=== PATIENT | female | born 1940 | race Caucasian/White ===

== ENCOUNTER → 2016-05-27 | Outpatient (CLI) | payer OTHER ==
[~2016-05-27] MED LIST: ASPI325T39 PO; BENZ100C84 PO; FLUT1INH INH; LOSA50TA54 PO; SIMV10TA2 PO
[2016-05-27 17:29] LABS: BASO % 0.4 %; BASO ABS # 0.03 K/uL (0-0.2); COMPLETE YES; EOS % 1.4 %; HEMATOCRIT 43.5 % (37-47); IG% 0.1 %; LYMPH % 27.6 %; LYMPH ABS # 1.93 K/uL (1.2-3.4); MEAN CELL VOLUME 92.8 fL (80-100); MEAN CORPUSCULAR HEMOGLOBIN 30.5 pg (25-34); MEAN CORPUSCULAR HGB CONC 32.9 g/dl (32-36); MEAN PLATELET VOLUME 10.1 fL (7.4-10.4); MONO % 10.9 %; NEUT % 59.6 %; PLATELET COUNT 267 K/uL (130-400); RED BLOOD COUNT 4.69 M/uL (4.2-5.4); WHITE BLOOD COUNT 6.99 K/uL (4.8-10.8)
[2016-05-27 17:35] LABS: ALT/SGPT 22 U/L (12-78); AST/SGOT 14 U/L (15-37); BLOOD UREA NITROGEN 28 mg/dl (7-18); BUN/CREATININE RATIO 31.2 (10-20); CALCIUM 9.2 mg/dl (8.5-10.1); CARBON DIOXIDE 31 mmol/L (21-32); CHLORIDE 105 mmol/L (98-107); CREATININE 0.89 mg/dl (0.60-1.20); GLUCOSE 101 mg/dl (70-99); POTASSIUM 3.6 mmol/L (3.5-5.1); SODIUM 144 mmol/L (136-145)
[2016-05-27 17:46] LABS: ALB/GLOB RATIO 1.3 (0.9-2); ALKALINE PHOSPHATASE 64 U/L (45-117); THYROID STIMULATING HORMONE 0.518 uIu/ml (0.300-4.500)
== END | disposition home or self-care (01) ==
LOC: C.LABBFT 13:01
PROVIDERS: ATTEND Internal Medicine
DX: R42 Dizziness and giddiness (principal); I65.29 Occlusion and stenosis of unspecified carotid artery; H61.20 Impacted cerumen, unspecified ear

== ENCOUNTER → 2016-06-06 | Outpatient (CLI) | payer OTHER ==
[2016-06-06 12:44] LABS: BLOOD UREA NITROGEN 20 mg/dl (7-18); BUN/CREATININE RATIO 21.8 (10-20); CALCIUM 9.2 mg/dl (8.5-10.1); CARBON DIOXIDE 29 mmol/L (21-32); CHLORIDE 105 mmol/L (98-107); CHOLESTEROL 241 mg/dl (0-200); CREATININE 0.91 mg/dl (0.60-1.20); GLUCOSE 103 mg/dl (70-99); POTASSIUM 3.9 mmol/L (3.5-5.1); SODIUM 143 mmol/L (136-145)
[2016-06-06 12:47] LABS: CHOLESTEROL/HDL RATIO 2.7; HDL CHOLESTEROL 90 mg/dl; LDL CHOLESTEROL CALCULATED 128 mg/dl; TRIGLYCERIDES 114 mg/dl (0-150); VERY LOW DENSITY LIPOPROT CALC 23 mg/dl
== END | disposition home or self-care (01) ==
LOC: C.LABBFT 09:00
PROVIDERS: ATTEND Family Medicine
DX: I10 Essential (primary) hypertension (principal); E78.5 Hyperlipidemia, unspecified

== ENCOUNTER → 2016-06-14 | Outpatient (CLI) | payer OTHER ==
[~2016-06-14] MED LIST changes: +GADAVIST IV PRN
--- NOTE | 2016-06-14 12:47 | DIAGNOSTIC IMAGING REPORT ---
MR ANGIOGRAPHY OF THE [place] OF [place] NO CONTRAST CLINICAL HISTORY: Basilar artery stenosis. Dizziness. Hypertension. COMPARISON STUDY: 2008 A 3-D [id number] MR angiographic sequence of the [place] was performed. Both the source and projection images were reviewed. There is no evidence of major intracranial branch occlusion. There is no evidence of intracranial stenosis. This study fails to confirm the suspected basilar artery stenosis. There is a nonspecific 4 mm focus of increased signal in the region of the right anterior sylvian fissure. This is of questionable clinical significance. There are no corresponding abnormalities on the MRI the brain performed the same day. IMPRESSION: 1. Nonspecific 4 cm focus of increased signal in the region of the right anterior sylvian fissure. This is ill-defined and not typical for an aneurysm. There are no corresponding abnormalities on the MRI the brain performed the same day. This may be artifactual. 2. No evidence of major intracranial branch occlusion 3. No evidence of basilar artery stenosis Electronically signed by: Antwon Cross M.D. 06/14/2016 12:45 PM Dictated Date/Time: 06/14/2016 12:12 PM
--- NOTE | 2016-06-14 12:51 | DIAGNOSTIC IMAGING REPORT ---
MRI OF THE BRAIN COMBO CLINICAL HISTORY: Dizziness. COMPARISON STUDY: MRI of the brain dated 12/01/2008. TECHNIQUE: MRI of the brain was performed utilizing various T1 and T2-weighted sequences in the axial, sagittal, and coronal planes. Contrast-enhanced sequences were acquired following the administration of 6 cc of Gadavist. FINDINGS: Brain parenchyma: There is mild patchy subcortical and periventricular microangiopathic disease. There is no hemorrhage or mass effect. There is no restricted diffusion to suggest acute ischemia. No enhancing mass lesion is identified on the postcontrast images. Galaviz-white matter differentiation is preserved. No extra-axial fluid collection is seen. The cerebellar tonsils are normal in configuration. Ventricles, sulci, and cisterns: Normal in configuration. Pituitary and sella: Unremarkable. Intracranial vasculature: Normal flow voids are maintained at the skull base. Orbits: The bony orbits are grossly intact. Orbital contents are normal in appearance noting bilateral ocular lens implants. Sinuses and mastoids: Clear. Calvarium: Unremarkable. Cervical cord: Partially visualized cervical spinal cord is normal in morphology and signal intensity. IMPRESSION: No acute intracranial abnormality. Electronically signed by: Clifford Haines M.D. 06/14/2016 12:50 PM Dictated Date/Time: 06/14/2016 12:47 PM
--- NOTE | 2016-06-14 14:31 | DIAGNOSTIC IMAGING REPORT ---
BILATERAL CAROTID DOPPLER STUDY HISTORY: CAROTID STENOSIS COMPARISON: None. TECHNIQUE: Real-time, grayscale, and color Doppler sonography of the carotid arteries was performed. Imaging reviewed in the transverse and longitudinal planes. All measurements were calculated based on NASCET criteria. FINDINGS: Antegrade flow is seen in the bilateral vertebral arteries. The brachial pressures are hemodynamically similar. Moderate plaque formation bilaterally The peak systolic velocity within the right ICA is 121. The right systolic ratio is 1.09. The peak systolic velocity within the left ICA is 96. The left systolic ratio is 0.63. IMPRESSION: 30% narrowing right internal carotid artery. No critical stenosis. Moderate atherosclerotic change Electronically signed by: Samm Alicia M.D. 06/14/2016 2:30 PM Dictated Date/Time: 06/14/2016 2:29 PM
== END | disposition home or self-care (01) ==
LOC: C.MRI 11:29
PROVIDERS: ATTEND Internal Medicine
DX: I65.1 Occlusion and stenosis of basilar artery (principal); I65.29 Occlusion and stenosis of unspecified carotid artery

== ENCOUNTER → 2016-10-03 | Outpatient (CLI) | payer OTHER ==
[~2016-10-03] MED LIST changes: -GADAVIST IV PRN
--- NOTE | 2016-10-03 08:09 | DIAGNOSTIC IMAGING REPORT ---
CHEST 2 VIEWS ROUTINE CLINICAL HISTORY: Cough. Shortness of breath. COMPARISON STUDY: Chest radiograph January 07, 2014. FINDINGS: Lung volumes are increased. There is no pneumothorax or pleural effusion. Cardiomediastinal silhouette is stable. There is no evidence of pulmonary edema. There is no consolidation to suggest pneumonia. Biapical opacities are unchanged since earlier exams and favor scarring. IMPRESSION: 1. No acute cardiopulmonary findings. No change in appearance of the chest. 2. Mild lung hyperexpansion. 3. Stable biapical opacities which favor scarring. Electronically signed by: Lonnie Ha M.D. 10/03/2016 8:08 AM Dictated Date/Time: 10/03/2016 8:04 AM
== END | disposition home or self-care (01) ==
LOC: C.RAD 07:40
PROVIDERS: ATTEND Internal Medicine
DX: R05 Cough (principal); R91.8 Other nonspecific abnormal finding of lung field

== ENCOUNTER 2016-10-11 15:03 | Emergency (ER) | payer OTHER ==
[~2016-10-11] VITALS: Ht 172.7 cm; Wt 64.0 kg
[~2016-10-11 15:03] MED LIST changes: -BENZ100C84 PO; -FLUT1INH INH; -LOSA50TA54 PO; -SIMV10TA2 PO
[2016-10-11 15:07] VITALS: TEMP 37.2; Ht 172.7 cm; Wt 64.0 kg
--- NOTE | 2016-10-11 15:42 | EMERGENCY ROOM VISIT NOTE ---
History Report prepared by Yash: Bradley Kraus Under the Supervision of: Dr. Levar Washington D.O. First contact with patient: 15:30 Chief Complaint: CARDIAC ASSESSMENT Stated Complaint: CHEST PAIN, ARM TINGLING, REFERRED BY DOCTOR History of Present Illness The patient is a 76 year old female who presents to the Emergency Room with complaints of resolved left sided chest pain that occurred last night, and was resolved by this morning. She has no chest discomfort at this time, except with deep inhalation. The patient states that her chest pain lasted for roughly 1 hour. She claims that she was watering her hdez by bucket when her pain began. She was experiencing some associated discomfort in her neck last night, which she notes that she is still having now. The patient also complains of some tingling in her fingers and vision irregularities throughout the day today , as well as some dyspnea upon exertion. She has no history of myocardial infarction or blood clots. She takes Aspirin 325 mg daily as a blood thinner. Source of History: patient Onset: One night GAS CUTTER Position: chest (left) Timing: resolved Modifying Factors (Worsening): other (Deep inhalation ) Associated Symptoms: + neck pain, + SOB, + numbness (Finger tips ) Review of Systems See HPI for pertinent positives & negatives. A total of 10 systems reviewed and were otherwise negative. Past Medical & Surgical Medical Problems: (1) No pertinent past medical history (2) Shingles Family History Patient reports no known family medical history. Social History Smoking Status: Never Smoker Alcohol Use: none Drug Use: none Occupation Status: retired Current/Historical Medications Scheduled Aspirin (Aspirin Ec), 325 MG PO DAILY Fluticasone Furoate-Vilanterol (Breo Ellipta), 1 PUFF INH BID Losartan Potassium (Cozaar), 50 MG PO DAILY Simvastatin (Zocor), 10 MG PO QPM Scheduled PRN Benzonatate (Tessalon Perles), 1-2 CAP PO Q4 PRN for Cough Allergies Coded Allergies: No Known Allergies (Unverified , 10/11/16) Physical Exam Vital Signs Date Time Temp Pulse Resp B/P (MAP) Pulse Ox O2 Delivery O2 Flow Rate FiO2 10/11/16 19:09 82 18 167/88 96 10/11/16 16:45 93 16 156/73 96 Room Air 10/11/16 16:01 85 10/11/16 15:45 97 Room Air 10/11/16 15:15 97 Room Air 10/11/16 15:07 37.2 100 17 198/87 94 Room Air Physical Exam GENERAL: Patient is awake, alert, and in no acute distress. Patient is resting comfortably and showing no signs of anxiety EYES: The conjunctivae are clear. The pupils are round and reactive. EARS, NOSE, MOUTH AND THROAT: The nose is without any evidence of any deformity. Mucous membranes are moist tongue is midline NECK: The neck is nontender and supple. RESPIRATORY: Normal respiratory effort is noted there is no evidence of wheezing rhonchi or rales CARDIOVASCULAR: Regular rate and rhythm noted there no murmurs rubs or gallops normal S1 normal S2 GASTROINTESTINAL: The abdomen is soft. Bowel sounds are present in all quadrants. Abdomen is nontender MUSCULOSKELETAL/EXTREMITIES: There is no evidence of gross deformity full range of motion is noted in the hips and shoulders SKIN: There is no obvious evidence of any rash. There are no petechiae, pallor or cyanosis noted. NEUROLOGIC: Patient is awake alert and oriented x3. Medical Decision & Procedures ER Provider Diagnostic Interpretation: Radiology results as stated below per my review and radiologist interpretation: CHEST ONE VIEW PORTABLE CLINICAL HISTORY: Atypical chest pain COMPARISON STUDY: 10/03/2016 FINDINGS: There is pulmonary emphysema. The heart is at the upper limits of normal in size. There is no failure. There is no focal pulmonary consolidation. There are no pleural effusions. There is a prominent right cardiophrenic angle fat pad.[ IMPRESSION: No active disease in the chest. Electronically signed by: Antwon Cross M.D. 10/11/2016 3:57 PM Dictated Date/Time: 10/11/2016 3:56 PM Laboratory Results 10/11/16 15:40 Red Blood Count 4.68, Mean Corpuscular Volume 95.3, Mean Corpuscular Hemoglobin 30.1, Mean Corpuscular Hemoglobin Concent 31.6, Mean Platelet Volume 9.3, Neutrophils (%) (Auto) 70.3, Lymphocytes (%) (Auto) 18.1, Monocytes (%) (Auto) 9.8, Eosinophils (%) (Auto) 1.3, Basophils (%) (Auto) 0.4, Neutrophils # (Auto) 6.26, Lymphocytes # (Auto) 1.61, Monocytes # (Auto) 0.87, Eosinophils # (Auto) 0.12, Basophils # (Auto) 0.04 10/11/16 15:40 Test 10/11/16 15:40 10/11/16 15:48 10/11/16 18:09 White Blood Count 8.91 K/uL (4.8-10.8) Red Blood Count 4.68 M/uL (4.2-5.4) Hemoglobin 14.1 g/dL (12.0-16.0) Hematocrit 44.6 % (37-47) Mean Corpuscular Volume 95.3 fL (80-100) Mean Corpuscular Hemoglobin 30.1 pg (25-34) Mean Corpuscular Hemoglobin Concent 31.6 g/dl (32-36) Platelet Count 221 K/uL (130-400) Mean Platelet Volume 9.3 fL (7.4-10.4) Neutrophils (%) (Auto) 70.3 % Lymphocytes (%) (Auto) 18.1 % Monocytes (%) (Auto) 9.8 % Eosinophils (%) (Auto) 1.3 % Basophils (%) (Auto) 0.4 % Neutrophils # (Auto) 6.26 K/uL (1.4-6.5) Lymphocytes # (Auto) 1.61 K/uL (1.2-3.4) Monocytes # (Auto) 0.87 K/uL (0.11-0.59) Eosinophils # (Auto) 0.12 K/uL (0-0.5) Basophils # (Auto) 0.04 K/uL (0-0.2) RDW Standard Deviation 49.5 fL (36.4-46.3) RDW Coefficient of Variation 14.2 % (11.5-14.5) Immature Granulocyte % (Auto) 0.1 % Immature Granulocyte # (Auto) 0.01 K/uL (0.00-0.02) Prothrombin Time 10.2 SECONDS (9.0-12.0) Prothromb Time International Ratio 1.0 (0.9-1.1) Activated Partial Thromboplast Time 26.3 SECONDS (21.0-31.0) Partial Thromboplastin Ratio 1.0 Anion Gap 7.0 mmol/L (3-11) Est Creatinine Clear Calc Drug Dose 54.6 ml/min Estimated GFR () 74.5 Estimated GFR (Non- 64.3 BUN/Creatinine Ratio 32.4 (10-20) Calcium Level 8.9 mg/dl (8.5-10.1) Total Bilirubin 0.5 mg/dl (0.2-1) Direct Bilirubin < 0.1 mg/dl (0-0.2) Aspartate Amino Transf (AST/SGOT) 17 U/L (15-37) Alanine Aminotransferase (ALT/SGPT) 22 U/L (12-78) Alkaline Phosphatase 69 U/L (45-117) Total Protein 7.1 gm/dl (6.4-8.2) Albumin 3.7 gm/dl (3.4-5.0) Lipase 114 U/L (73-393) Bedside D-Dimer 288 ng/mlFEU (0-450) Troponin I < 0.015 ng/ml (0-0.045) Laboratory results per my review. ECG Indication: chest pain Rate (beats per minute): 98 Rhythm: normal sinus Findings: no acute ischemic change, no ectopy Comparison ECG Date: no prior available ED Course 1533: The patient was evaluated in room B5. A complete history and physical examination were performed. 1855 : Upon reevaluation, the patient is resting in bed. I discussed the results and treatment plan with her. She verbalized agreement of the treatment plan. The patient was discharged home. Medical Decision Blood pressure screening: Patient was found to have an elevated blood pressure and was referred to their primary doctor for recheck and further treatment. Medication Reconciliation: I attest that I have personally reviewed the patient' s current medications list. Differential diagnosis: Etiologies such as cardiac ischemia, aortic dissection, pulmonary embolism, pneumonia, pneumothorax, musculoskeletal, infections, pericarditis, myocarditis , esophageal rupture, gastrointestinal, as well as others were entertained. The patient is a 76-year-old female who presented to the emergency department for an episode of chest pain. The patient describes left-sided chest pain which is worsened with inspiration as well as movement of her arm. The pain is somewhat reproducible. The patient states that she was working in her garden recently and thinks she may have pulled a muscle. The patient called her primary care physician and was sent to the emergency department for an evaluation. The patient's EKG did not show any acute ischemic changes and her troponin was not elevated on multiple draws. I discussed the patient's laboratory and radiographic studies with her. I discussed the limitations of the emergency department workup for chest pain with her. She was encouraged to rest and avoid any strenuous activity. She was encouraged to follow-up with her primary care physician is week for reevaluation but return to the emergency department immediately if symptoms change worsen or the need arises. Impression Primary Impression: Left sided chest pain Scribe Attestation The scribe's documentation has been prepared under my direction and personally reviewed by me in its entirety. I confirm that the note above accurately reflects all work, treatment, procedures, and medical decision making performed by me. Departure Information Dispostion Home / Self-Care Referrals Tal Dodd M.D. (PCP) Forms IMPORTANT VISIT INFORMATION Patient Instructions My [facility] Additional Instructions Continue all medications as prescribed. Rest and avoid any strenuous activity. Return to the emergency department immediately if symptoms change worsen in the need arises.
[2016-10-11 15:45] VITALS: O2SAT 97
--- NOTE | 2016-10-11 15:58 | DIAGNOSTIC IMAGING REPORT ---
CHEST ONE VIEW PORTABLE CLINICAL HISTORY: Atypical chest pain COMPARISON STUDY: 10/03/2016 FINDINGS: There is pulmonary emphysema. The heart is at the upper limits of normal in size. There is no failure. There is no focal pulmonary consolidation. There are no pleural effusions. There is a prominent right cardiophrenic angle fat pad.[ IMPRESSION: No active disease in the chest. Electronically signed by: Antwon Cross M.D. 10/11/2016 3:57 PM Dictated Date/Time: 10/11/2016 3:56 PM
[2016-10-11 16:12] LABS: BASO % 0.4 %; BASO ABS # 0.04 K/uL (0-0.2); COMPLETE YES; EOS % 1.3 %; HEMATOCRIT 44.6 % (37-47); IG% 0.1 %; LYMPH % 18.1 %; LYMPH ABS # 1.61 K/uL (1.2-3.4); MEAN CELL VOLUME 95.3 fL (80-100); MEAN CORPUSCULAR HEMOGLOBIN 30.1 pg (25-34); MEAN CORPUSCULAR HGB CONC 31.6 g/dl (32-36); MEAN PLATELET VOLUME 9.3 fL (7.4-10.4); MONO % 9.8 %; NEUT % 70.3 %; PLATELET COUNT 221 K/uL (130-400); RED BLOOD COUNT 4.68 M/uL (4.2-5.4); WHITE BLOOD COUNT 8.91 K/uL (4.8-10.8)
[2016-10-11] MEDS ORDERED: BENZ100C84 PO (16:16)
[2016-10-11] MEDS ORDERED: FLUT1INH INH (16:16)
[2016-10-11] MEDS ORDERED: SIMV10TA2 PO (16:16)
[2016-10-11] MEDS ORDERED: LOSA50TA54 PO (16:16)
[2016-10-11 16:20] LABS: PROTHROMBIN TIME (PATIENT) 10.2 SECONDS (9.0-12.0)
[2016-10-11 16:57] LABS: ALT/SGPT 22 U/L (12-78); AST/SGOT 17 U/L (15-37); BLOOD UREA NITROGEN 28 mg/dl (7-18); BUN/CREATININE RATIO 32.4 (10-20); CALCIUM 8.9 mg/dl (8.5-10.1); CARBON DIOXIDE 28 mmol/L (21-32); CHLORIDE 110 mmol/L (98-107); CREATININE 0.87 mg/dl (0.60-1.20); GLUCOSE 134 mg/dl (70-99); POTASSIUM 3.6 mmol/L (3.5-5.1); SODIUM 145 mmol/L (136-145)
[2016-10-11 17:02] LABS: ALKALINE PHOSPHATASE 69 U/L (45-117)
[2016-10-11 19:09] VITALS: BP 167/88; PULSE 82; O2SAT 96
== END 2016-10-11 19:10 | disposition home or self-care (01) ==
LOC: C.EDB 15:05
DX: R07.9 Chest pain, unspecified (principal); Z79.82 Long term (current) use of aspirin; Z79.899 Other long term (current) drug therapy

== ENCOUNTER 2016-10-22 10:56 | Emergency (ER) | payer OTHER ==
[~2016-10-22] VITALS: Ht 172.7 cm; Wt 63.8 kg
[~2016-10-22 10:56] MED LIST changes: +BENZ100C84 PO; +FLUT1INH INH; +LOSA50TA54 PO; +SIMV10TA2 PO
[2016-10-22 10:59] VITALS: TEMP 36.3; Ht 172.7 cm; Wt 63.8 kg
[2016-10-22] MEDS ORDERED: XYLOCAINE 1%/SOD BICARB 20 ML VIAL INFIL ONE (11:45)
[2016-10-22] MEDS ORDERED: DIPHTHERIA/TETANUS/PERTUSSIS 0.5 ML SYR/VIAL IM. ONE (11:45)
--- NOTE | 2016-10-22 12:10 | EMERGENCY ROOM VISIT NOTE ---
History Report prepared by Yash: Steph Aponte Under the Supervision of: Dr. Thierry Jauregui M.D. First contact with patient: 11:33 Chief Complaint: LACERATION/CUT (NON-SUTURE) Stated Complaint: LACERATION OF LIP Nursing Triage Summary: pt doesn't know how she fell but hit her face on the floor and has a lac above left lip History of Present Illness The patient is a 76 year old female who presents to the Emergency Room with complaints of an episode of a fall occurring just prior to arrival. The patient reports that she turned suddenly and her legs just gave out. She states that she hit her face off the concrete, but her glasses didn't even fall off. She reports that she was able to walk on her own after the fall. The patient denies loss of consciousness, chest pain, neck pain, headache, and urinary symptoms. The patient notes that she takes Aspirin and that she is unsure of her last tetanus shot. Source of History: patient Onset: prior to arrival Position: other (global) Quality: other (global) Timing: other (episode) Associated Symptoms: No LOC, No headache, No neck pain, No chest pain, No urinary symptoms Review of Systems See HPI for pertinent positives & negatives. A total of 6 systems reviewed and were otherwise negative. Past Medical & Surgical Medical Problems: (1) No pertinent past medical history (2) Shingles Family History Patient reports no known family medical history. Social History Smoking Status: Never Smoker Alcohol Use: none Drug Use: none Housing Status: lives alone Occupation Status: retired Current/Historical Medications Scheduled Aspirin (Aspirin Ec), 325 MG PO DAILY Fluticasone Furoate-Vilanterol (Breo Ellipta), 1 PUFF INH BID Losartan Potassium (Cozaar), 50 MG PO DAILY Simvastatin (Zocor), 10 MG PO QPM Scheduled PRN Benzonatate (Tessalon Perles), 1-2 CAP PO Q4 PRN for Cough Allergies Coded Allergies: No Known Allergies (Unverified , 10/22/16) Physical Exam Vital Signs Date Time Temp Pulse Resp B/P (MAP) Pulse Ox O2 Delivery O2 Flow Rate FiO2 10/22/16 12:17 68 20 174/86 97 Room Air 10/22/16 10:59 36.3 77 16 186/79 95 Room Air Physical Exam GENERAL: Patient is well appearing and in no acute distress. HEENT: No acute trauma, normocephalic atraumatic, mucous membranes moist, no nasal congestion, no scleral icterus. NECK: No stridor, no adenopathy, no meningismus, trachea is midline. LUNGS: No dyspnea. Clear to auscultation and equal bilaterally. No wheeze, no rhonchi. HEART: Regular rate and rhythm. No murmurs, rubs, gallops appreciated. EXTREMITIES: Normal motion all extremities, no cyanosis, no edema. NEUROLOGIC: Alert and oriented, no acute motor or sensory deficits, no focal weakness, cranial nerves grossly intact. SKIN: No rash, no jaundice, no diaphoresis. 1 cm horizontal lip laceration just above left upper mandible border. Medical Decision & Procedures Medications Administered Medications (Trade) Dose Ordered Sig/Ct Route Start Time Stop Time Status Last Admin Dose Admin Diphtheria/ Pertussis/Tetanus Vacc (Adacel Inj) 0.5 ml ONCE ONCE IM. 10/22/16 11:45 10/22/16 11:46 DC 10/22/16 11:46 0.5 ML ED Course 1135: The patient was evaluated in room C5. A complete history and physical exam was performed. 1145: Ordered Adacel Inj 0.5 ml IM, Lidocaine HCl 20 ml INFIL. 1212: Reevaluated the patient. Discussed results and discharge instructions: She verbalized understanding and agreement. The patient is ready for discharge. Medical Decision Medication Reconciliation: I attest that I have personally reviewed the patient 's current medication list. Blood pressure screening: Patient was found to have an elevated blood pressure and was referred to their primary doctor for recheck and further treatment. 76 yr old female with left upper lip laceration after what she makes clear was mechanical trip and fall hitting lip. She declines testing and is not on any blood thinners. She denies syncopal event nor symptoms consistent with cardiac/ neurological cause of fall. She by exam looks well and in no distress. Unknown last tetanus thus adacel. Sutured by LUANNE and stable. Impression Primary Impression: Lip laceration Additional Impressions: [id number] (DTP) vaccination Hypertension Scribe Attestation The scribe's documentation has been prepared under my direction and personally reviewed by me in its entirety. I confirm that the note above accurately reflects all work, treatment, procedures, and medical decision making performed by me. Departure Information Dispostion Home / Self-Care Referrals Tal Dodd M.D. (PCP) Forms HOME CARE DOCUMENTATION FORM, IMPORTANT VISIT INFORMATION, WORK / SCHOOL INSTRUCTIONS Patient Instructions ED Laceration Facial Sutr Tape, My [facility] Additional Instructions You had 3 stitches placed in your lip. Please return or follow up with your Primary Care Provider in 5 to 7 days for removal of stitches. Return if signs of infection develop. Your blood pressure was elevated during this visit. This is quite common in many people who are being evaluated in the Emergency Department for many reasons. However, it is important that you have your Primary Care Provider recheck your blood pressure and discuss whether treatment will be needed. 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 If you develop severe headaches, chest pain, weakness in arms or legs, or other concerning symptoms call 911. Problem Qualifiers Primary Impression: Lip laceration Encounter type: initial encounter Qualified Codes: S01.511A - Laceration without foreign body of lip, initial encounter
--- NOTE | 2016-10-22 12:13 | EMERGENCY ROOM VISIT NOTE ---
ED Visit Note I was requested by Dr. Jauregui for a facial laceration repair on this patient. PROCEDURE:Wound Repair: Complexity: Basic. Verbal consent was obtained after the risks and benefits were explained, including but not limited to bleeding, scarring, infection, pain, and bone/joint /nerve damage. The skin was prepped with betadine and a sterile field set. The wound was anesthetized with 1.0 ml of 1% buffered lidocaine. With direct pressure the bleeding subsided. Copious irrigation was performed using sterile saline. The wound was explored for foreign bodies and none found. Debridement was not performed. The wound edges were approximated using 6-0 Ethilon with 3 simple interrupted sutures. Hemostasis and excellent approximation was achieved. Antibacterial ointment was applied. Detailed wound care instructions and signs and symptoms of infection reviewed with the patient. No complications and the patient tolerated the procedure well.
[2016-10-22 12:17] VITALS: BP 174/86; PULSE 68; O2SAT 97
== END 2016-10-22 12:19 | disposition home or self-care (01) ==
LOC: C.EDB 10:58 → C.EDC 12:19
DX: S01.511A Laceration without foreign body of lip, initial encounter (principal); W19.XXXA Unspecified fall, initial encounter; Z23 Encounter for immunization; I10 Essential (primary) hypertension; Z79.82 Long term (current) use of aspirin

== ENCOUNTER → 2017-05-21 | Outpatient (CLI) | payer OTHER ==
--- NOTE | 2017-05-21 13:28 | DIAGNOSTIC IMAGING REPORT ---
R FINGER(S) MIN 2 VIEWS ROUTINE CLINICAL HISTORY: S63.259A Dislocated fingerRightMiddle Finger trauma. Dislocation. COMPARISON: None. DISCUSSION: Moderate degenerative change of the interphalangeal joints. No acute bony abnormality. Alignment is anatomic. Mild soft tissue edema. IMPRESSION: Anatomic alignment with no acute posttraumatic change. Mild degenerative change The above report was generated using voice recognition software. It may contain grammatical, syntax or spelling errors. Electronically signed by: Samm Alicia M.D. 05/21/2017 1:26 PM Dictated Date/Time: 05/21/2017 1:25 PM
== END | disposition home or self-care (01) ==
LOC: C.RAD 13:01
PROVIDERS: ATTEND Physician Assistant Medical
DX: S63.252A Unspecified dislocation of right middle finger, initial encounter (principal); X58.XXXA Exposure to other specified factors, initial encounter

== ENCOUNTER → 2017-08-08 | Outpatient (CLI) | payer OTHER ==
[2017-08-08 12:21] LABS: HEMATOCRIT 43.7 % (37-47); HEMOGLOBIN 14.1 g/dL (12.0-16.0); MEAN CELL VOLUME 94.2 fL (80-100); MEAN CORPUSCULAR HEMOGLOBIN 30.4 pg (25-34); MEAN CORPUSCULAR HGB CONC 32.3 g/dl (32-36); MEAN PLATELET VOLUME 9.4 fL (7.4-10.4); PLATELET COUNT 257 K/uL (130-400); RED CELL DISTRIBUTION WIDTH CV 14.8 % (11.5-14.5); RED CELL DISTRIBUTION WIDTH SD 51.1 fL (36.4-46.3); WHITE BLOOD COUNT 5.77 K/uL (4.8-10.8)
[2017-08-08 14:43] LABS: ALBUMIN 3.7 gm/dl (3.4-5.0); ALT/SGPT 23 U/L (12-78); AST/SGOT 17 U/L (15-37); BLOOD UREA NITROGEN 23 mg/dl (7-18); CALCIUM 9.2 mg/dl (8.5-10.1); CARBON DIOXIDE 28 mmol/L (21-32); CREATININE 0.84 mg/dl (0.60-1.20); GLUCOSE 72 mg/dl (70-99); SODIUM 138 mmol/L (136-145)
[2017-08-08 14:47] LABS: ALKALINE PHOSPHATASE 69 U/L (45-117); CHOLESTEROL 214 mg/dl (0-200); LDL CHOLESTEROL CALCULATED 112 mg/dl; TOTAL PROTEIN 7.1 gm/dl (6.4-8.2)
== END | disposition home or self-care (01) ==
LOC: C.LABBFT 09:07
PROVIDERS: ATTEND Internal Medicine
DX: I10 Essential (primary) hypertension (principal); E78.5 Hyperlipidemia, unspecified

== ENCOUNTER 2022-11-10 10:42 | Inpatient (IN) ==
[~2022-11-10 10:42] MED LIST changes: -ASPI325T39 PO; -BENZ100C84 PO; -FLUT1INH INH; +LACTATED RINGER'S 1,000 ML IV SCH; -LOSA50TA54 PO; -SIMV10TA2 PO
[2022-11-10 12:03] LABS: Basophils # (auto) 0.04 K/uL (0-0.2); Basophils % (auto) 0.4 %; Eosinophils # (auto) 0.04 K/uL (0-0.50); Eosinophils % (auto) 0.4 %; Hemoglobin 15.1 g/dl (12.0-16.0); Immature Granulocytes # (auto) 0.04 K/uL (0.01-0.20); Immature Granulocytes % (auto) 0.4 %; Lymphocytes % (auto) 6.7 %; Mean Corpuscular Hemoglobin 30.1 pg (25.0-34.0); Mean Corpuscular Hgb Conc 32.8 g/dL (32.0-36.0); Mean Corpuscular Volume 91.6 fL (80.0-100.0); Mean Platelet Volume 10.1 fL (9.4-12.4); Monocytes # (auto) 0.53 K/uL (0.11-0.59); Monocytes % (auto) 5.1 %; Neutrophils # (auto) 9.08 K/uL (1.40-6.50); Platelet Count 188 K/uL (130-400); RDW Coefficient of Variation 14.4 % (11.5-14.5); RDW Standard Deviation 48.3 fL (36.4-46.3); Red Blood Count 5.02 M/uL (4.20-5.40); White Blood Count 10.43 K/ul (4.8-10.8)
[2022-11-10 12:16] LABS: Albumin Globulin Ratio 1.4 (0.9-2); Albumin Level 4.3 gm/dl (3.4-5.0); BUN Creatinine Ratio 36.8 (10-20); Bilirubin,Total 0.7 mg/dl (0.2-1.0); Calcium 9.7 mg/dl (8.6-10.3); Creatinine Clr Calc Pharmacy 56.6 ml/min; Est GFR (African American) 84.1 ml/min; Est GFR (Non-African American) 72.5 ml/min; Globulin 3.1 gm/dl (2.5-4.0); Potassium 3.7 mmol/L (3.5-5.1); Total Protein 7.4 gm/dl (6.0-8.3)
[2022-11-10] MEDS ORDERED: MoRPHine SULFATE 4 MG/ML 1 ML CARP\\VIAL IV PRN ×2 (12:20→19:51)
[2022-11-10] MEDS ORDERED: ACETAMINOPHEN 500 MG TAB PO PRN (12:20)
[2022-11-10] MEDS: MoRPHine SULFATE 2 MG/ML CARP IV PRN ×2 (12:27→14:24)
[2022-11-10 12:28] LABS: Partial Thromboplastin Ratio 0.8; Partial Thromboplastin Time 23.8 Seconds (21.0-31.0); Prothrombin Time 10.6 Seconds (9.0-12.0)
--- NOTE | 2022-11-10 12:41 | XRay Report ---
XR chest 1V portable HISTORY: 82 years-old Female fall acute chest trauma status post fall COMPARISON: 10/11/2016 TECHNIQUE: AP view of the chest FINDINGS: Cardiac silhouette is enlarged. Chronic interstitial coarsening. There is no pneumothorax, pleural ef fusion, airspace consolidation or pulmonary edema. Bones of the chest appear grossly intact. IMPRESSION: No acute process. ACT 112: Negative or not required by law. The above report was generated using voice recognition software. It may contain grammatical, syntax o r spelling errors. Electronically signed by: Jeffrey Gagnon M.D. 11/10/2022 12:39 PM
--- NOTE | 2022-11-10 12:45 | XRay Report ---
XR elbow LT min 3V routine HISTORY: 82 years-old Female fall acute pain of the left elbow COMPARISON: None TECHNIQUE: 3 views of the left elbow FINDINGS: Limited exam secondary to suboptimal lateral view. Demineralized appearance of the bones with moderat e osteoarthritis. No acute fracture, dislocation or large joint effusion. IMPRESSION: Limited exam secondary to positioning. No acute fracture identified. ACT 112: Negative or not required by law. The above report was generated using voice recognition software. It may contain grammatical, syntax o r spelling errors. Electronically signed by: Jeffrey Gagnon M.D. 11/10/2022 12:44 PM
--- NOTE | 2022-11-10 12:49 | XRay Report ---
XR femur LT 2V routine, XR hip LT 1V HISTORY: 82 years-old Female fall acute left hip pain status post fall COMPARISON: None TECHNIQUE: One view of the left hip with 2 views of the left femur FINDINGS: HIP: Subacute appearing comminuted, impacted and displaced subcapital femoral fracture with corticated mar gins. It has appearance of the bones. Moderate osteoarthritis of the left hip. FEMUR: Demineralized appearance of the bones. Limited exam secondary to positioning. No additional acute fra cture or dislocation identified. IMPRESSION: Subacute appearing displaced and impacted subcapital femoral fracture. ACT 112: Negative or not required by law. The above report was generated using voice recognition software. It may contain grammatical, syntax o r spelling errors. Electronically signed by: Jeffrey Gagnon M.D. 11/10/2022 12:47 PM
--- NOTE | 2022-11-10 13:15 | CT Scan Report ---
CT head/brain wo con CLINICAL HISTORY: 82 years-old Female with fall. Acute head trauma status post fall TECHNIQUE: Multiple axial CT images of the head were obtained without contrast. A dose lowering tech nique was utilized adhering to the principles of ALARA. CT DOSE: 547.75 mGy.cm COMPARISON: Brain MRI 06/14/2016 FINDINGS: No acute intracranial hemorrhage, midline shift, intracranial mass, hydrocephalus, territorial ischem ia or abnormal extra-axial collection. Involutional changes with chronic microvascular ischemic disea se. Cerebrovascular calcifications. The calvarium is intact. Mild mucosal thickening of the ethmoid air cells. Mastoid air cells are wale ar. Prior bilateral lens repair. IMPRESSION: No acute intracranial abnormality or calvarial fracture. ACT 112: Negative or not required by law. The above report was generated using voice recognition software. It may contain grammatical, syntax o r spelling errors. Electronically signed by: Jeffrey Gagnon M.D. 11/10/2022 1:13 PM
--- NOTE | 2022-11-10 13:42 | History & Physical Report ---
Date of Service November 10, 2022 Assessment & Plan (1) Closed left hip fracture: Plan: Subacute closed left hip fracture 2/2 Fall -CThead: No acute findings -Left hip/femur x-ray: Subacute displaced and impacted subcapital femoral fracture -Left elbow x-ray: Limited by positioning, no acute fracture -Chest x-ray: No acute finding -Admitting EKG: Sinus rhythm with PACs, QTc 453, rate 83. No territorial signs of acute ischemia. -Creatinine is with normal baseline, 0.76 on admission -Sodium, potassium, calcium normal on admission -PT/INR and APTT normal on admission -No leukocytosis on admission -Admitting hemoglobin 15.1, normocytic -Nonweightbearing, place Abraham, Tylenol every 8 hours IV with morphine for breakthrough pain, type and cross Ortho consulted - RCRI class I risk. Acceptable surgical risk without modifiable risk factors on admit (2) Hypertension: Plan: Normotensive on admission. Benzapril is held in anticipation of surgical evaluation Continue amlodipine daily Normotensive on admit (3) Dyslipidemia: Plan: Last LDL 73 in 2020, reasonably controlled without statin Plan DVT prophylaxis: SCDs Disposition: Med/Surg Diet: N.p.o. CODE STATUS: DNR/DNI History of Present Illness Primary Care Provider: Tessie Dominique MD Mikala is an 82-year-old with a past medical history of hypertension, hyperlipidemia, and daily aspirin use on amlodipine/BenzePril who presented to the ER after a fall with left hip pain. She is admitted for an acute hip fracture. Seen with daughter in law Ferris, Last ate 8am, no blood thinners Mikala reports she has wood floors andf was wearing sandles and went to reach above her refridgerator to get some cough drops and she lost her balance and fell. Doesn't remember any lightheadednezz, dizziness, syncope, pre-sycnope. Does have a hx of postural/orthostatic dizziness but no syncope. Immediately well oriented after No chest pain or chest pressure. None recently Uses cough drops to keep her mouth moist, denies recent fevers, chills, cough, diarrhea. Has not had PFTs in many years, no history of COPD/Bailey but concern for DLCO and ?eventual oxygen requirement. Had PFTs many years ago, not sure why thinks it may have been for secondary smoke exposure or shortness of breath at the time. Pt denies any wheezing, does endorse intermittent hoarse voice. Has not taken atorvastatin in several years. Takes full dose aspirin, takes after dinner- last took 11/09. Small cereal and milk at 8am No hx insulin use No history of heart failure Medical History: Reviewed Medications: Reviewed. Amlodipine-benzapril. Surgical History: Reviewed Family history: Reviewed Allergies: Reviewed Social History: No history of tobacco use. Did have secondary smoke exposure. Code Status: DNR/DNI Allergies Allergy/AdvReac Type Severity Reaction Status Date / Time No Known Allergies Allergy Unverified 09/05/20 13:02 Home Medications Medication Instructions Recorded Confirmed Type aspirin 325 mg tablet 325 mg PO DAILY #90 tabs 04/23/19 11/10/22 Rx multivitamin (Multiple Vitamins 1 tab PO QAM #30 tabs 04/23/19 11/10/22 Rx tablet) cyanocobalamin (vitamin B-12) 500 500 mcg PO DAILY 08/12/19 11/10/22 History mcg tablet amlodipine 5 mg-benazepril 20 mg 1 cap PO DAILY #90 caps 11/04/22 11/10/22 Rx capsule ewvwnzc-jcwockaht-hmdf tablet 1 tab PO DAILY 11/10/22 11/10/22 History potassium 99 mg tablet 99 mg PO DAILY 11/10/22 11/10/22 History Past Med/Surg History Medical History Antiplatelet or antithrombotic long-term use Dyslipidemia Hypertension Left shoulder pain Postural lightheadedness Surgical History S/P cataract surgery Family History Mother Acute myocardial infarction Myocardial infarction Father Acute myocardial infarction Myocardial infarction Sister FH: CABG (coronary artery bypass surgery) Myocardial infarction Other Coronary heart disease Denies family history of Ovarian cancer Prostate cancer Breast cancer Colorectal cancer Social History (Updated 09/03/22 @ 11:24 by Angelika Rodriguez LPN) Smoking Status: Never smoker Second Hand Exposure: No; Do You Dip or Chew Tobacco: No; Hx Alcohol Use: No Hx Substance Use: No Preferred Language: Mozambican Visual Impairment: No Limitations Hearing Ability: Normal marital status: / Current Living Situation: Alone current occupational status: retired current occupation: worked with the [employer] Feels Safe at Home: Yes Childhood Exposure to Second-Hand Smoke: No Diet: regular Dental Care, Regularly: No Physical Activity Frequency: Daily Physical Activity Frequency Comment: house chores, yard work Seatbelt Use: always Sunscreen Use: No Review of Systems Review of Systems: All systems reviewed & are unremarkable except as noted in HPI & below Physical Exam Physical Exam: General: A&Ox3. NAD. Cooperative. HEENT: Atraumatic, normocephalic. Vision/hearing intact Pulm: CTAB A&P. -wheezes, -rales, -rhonchi. Symmetrical chest rise. No increased work of breathing. No respiratory distress. Cardiac: RRR, -mrg. Radial pulses intact and symmetrical. Abdominal: Nontender, nondistended, soft. BS present. Ext: LLE externally rotated, shortered. PT pulse intact bilaterally. Sensation intact to soft touch in all extremities. Results & Data Results & Data Vital Signs (Past 12 Hours) Vital Signs Temp Pulse Resp BP Pulse Ox O2 Del Method 11/10/22 13:06 83 11/10/22 10:52 37.0 C 79 17 137/75 95 Room Air PG Care Time/CCT Total # of Minutes Spent Total Time Spent with Patient: Total time spent is greater than 50% in coordination of care (as documented) at patient's floor/unit and/or counseling patient: Coding Level of Care Code 30189 INT INP/OBS CARE 3/75MIN Diagnoses Closed left hip fracture S72.002A Hypertension I10 Dyslipidemia E78.5
[2022-11-10] MEDS ORDERED: fentaNYL citrate PF 100 MCG/2 ML VIAL ONE ×2 (14:13→17:40)
--- NOTE | 2022-11-10 14:39 | Orthopedic Consultation ---
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 After orthopedic consult discussing the patients treatment options of conservative versus surgical intervention, the patient agreed for a planned hemiarthroplasty. Since the patient was ambulatory prior to the injury and to avoid the risks of bed sores, pulmonary complications, and to give the patient the best chance for ambulation, I recommended surgery. The patient understands the risks of surgery, which include but are not limited to: bleeding, infection, re- operation, damage to nerves and arteries, continued pain, failure of the hardware, fracture, dislocation, DVT, NC, stroke, and . In addition the patient is aware of the 20-30% morbidity associated with hip fracture for up to 1 year following a hip fracture. The patient understands all of these instructions and explanations, all of their questions have been satisfactorily addressed. The patient has elected to proceed with surgery and the informed consent was signed. Continue pain control. NPO with fluids. The patient will be admitted to the Hospitalist service. The patient has been placed on the add- on for today. She has been medically cleared. My initials were placed on the left thigh/hip. Present on Admission?: Yes History of Present Illness Reason for Consultation: left hip fracture Requesting Physician: Nina Damico MD Attending Physician: Dr. Pili Betancourt History of Present Illness 82 yo female injured left hip following ground level fall today. Could not bare weight and came to ED x-rays showed a left hip fracture. She is an ambulator and last ate 8 am. She will be admitted to Hospitalist service. I was consulted for evaluation and treatment of her left hip fracture. She has been medically cleared for surgery. Allergies Allergy/AdvReac Type Severity Reaction Status Date / Time No Known Allergies Allergy Unverified 09/05/20 13:02 Home Medications Medication Instructions Recorded Confirmed Type aspirin 325 mg tablet 325 mg PO DAILY #90 tabs 04/23/19 11/10/22 Rx multivitamin (Multiple Vitamins 1 tab PO QAM #30 tabs 04/23/19 11/10/22 Rx tablet) cyanocobalamin (vitamin B-12) 500 500 mcg PO DAILY 08/12/19 11/10/22 History mcg tablet amlodipine 5 mg-benazepril 20 mg 1 cap PO DAILY #90 caps 11/04/22 11/10/22 Rx capsule ioogyzg-gajghftrc-cazp tablet 1 tab PO DAILY 11/10/22 11/10/22 History potassium 99 mg tablet 99 mg PO DAILY 11/10/22 11/10/22 History Patient History Medical History Antiplatelet or antithrombotic long-term use Dyslipidemia Hypertension Left shoulder pain Postural lightheadedness Surgical History S/P cataract surgery Family History Mother Acute myocardial infarction Myocardial infarction Father Acute myocardial infarction Myocardial infarction Sister FH: CABG (coronary artery bypass surgery) Myocardial infarction Other Coronary heart disease Denies family history of Ovarian cancer Prostate cancer Breast cancer Colorectal cancer Social History Smoking Status: Never smoker Second Hand Exposure: No; Do You Dip or Chew Tobacco: No; Hx Alcohol Use: No Hx Substance Use: No Preferred Language: Greek Visual Impairment: No Limitations Hearing Ability: Normal marital status: / Current Living Situation: Alone current occupational status: retired current occupation: worked with the [employer] Feels Safe at Home: Yes Childhood Exposure to Second-Hand Smoke: No Diet: regular Dental Care, Regularly: No Physical Activity Frequency: Daily Physical Activity Frequency Comment: house chores, yard work Seatbelt Use: always Sunscreen Use: No Review of Systems Review of Systems: All systems reviewed & are unremarkable except as noted in HPI & below Denies LOC. only notes a skin tear on her right upper arm. Physical Exam Physical Exam: LLE: Shortened and externally rotated. Sensation to light touch is diminished due to neuropathy, unchanged per patient. 2+ PT. Able to wiggle toes. Calf soft and non-tender. ++any motion of the hip. + TTP groin. Results & Data Vital Signs (Past 12 Hours) Vital Signs Temp Pulse Pulse Resp BP BP Pulse Ox 11/10/22 14:13 88 19 170/103 H 93 11/10/22 13:06 83 11/10/22 10:52 37.0 C 79 17 137/75 95 O2 Del Method 11/10/22 14:13 Room Air 11/10/22 13:06 11/10/22 10:52 Room Air Laboratory Results Laboratory Results WBC 10.43 K/ul (4.8-10.8) 11/10/22 11:43 RBC 5.02 M/uL (4.20-5.40) 11/10/22 11:43 Hgb 15.1 g/dl (12.0-16.0) 11/10/22 11:43 Hct 46.0 % (37.0-47.0) 11/10/22 11:43 MCV 91.6 fL (80.0-100.0) 11/10/22 11:43 MCH 30.1 pg (25.0-34.0) 11/10/22 11:43 MCHC 32.8 g/dL (32.0-36.0) 11/10/22 11:43 RDW Std Deviation 48.3 fL (36.4-46.3) H 11/10/22 11:43 RDW Coeff of Reny 14.4 % (11.5-14.5) 11/10/22 11:43 Plt Count 188 K/uL (130-400) 11/10/22 11:43 MPV 10.1 fL (9.4-12.4) 11/10/22 11:43 Immature Gran % (Auto) 0.4 % 11/10/22 11:43 Neut % (Auto) 87.0 % 11/10/22 11:43 Lymph % (Auto) 6.7 % 11/10/22 11:43 Brule % (Auto) 5.1 % 11/10/22 11:43 Eos % (Auto) 0.4 % 11/10/22 11:43 Baso % (Auto) 0.4 % 11/10/22 11:43 Neut # (Auto) 9.08 K/uL (1.40-6.50) H 11/10/22 11:43 Lymph # (Auto) 0.70 K/uL (1.2-3.4) L 11/10/22 11:43 Brule # (Auto) 0.53 K/uL (0.11-0.59) 11/10/22 11:43 Eos # (Auto) 0.04 K/uL (0-0.50) 11/10/22 11:43 Baso # (Auto) 0.04 K/uL (0-0.2) 11/10/22 11:43 Immature Gran # (Auto) 0.04 K/uL (0.01-0.20) 11/10/22 11:43 PT 10.6 Seconds (9.0-12.0) 11/10/22 11:43 INR 1.0 (0.9-1.1) 11/10/22 11:43 APTT 23.8 Seconds (21.0-31.0) 11/10/22 11:43 PTT Ratio 0.8 11/10/22 11:43 Sodium 141 mmol/L (136-145) 11/10/22 11:43 Potassium 3.7 mmol/L (3.5-5.1) 11/10/22 11:43 Chloride 105 mmol/L (98-107) 11/10/22 11:43 Carbon Dioxide 27 mmol/L (21-32) 11/10/22 11:43 Anion Gap 9 (3-11) 11/10/22 11:43 BUN 28 mg/dl (6-23) H 11/10/22 11:43 Creatinine 0.76 mg/dl (0.6-1.2) 11/10/22 11:43 Est Cr Clr Drug Dosing 56.6 ml/min 11/10/22 11:43 Est GFR ( Amer) 84.1 ml/min 11/10/22 11:43 Est GFR (Non-Af Amer) 72.5 ml/min 11/10/22 11:43 BUN/Creatinine Ratio 36.8 (10-20) H 11/10/22 11:43 Glucose 104 mg/dl (70-99(Fasting)) H 11/10/22 11:43 Calcium 9.7 mg/dl (8.6-10.3) 11/10/22 11:43 Total Bilirubin 0.7 mg/dl (0.2-1.0) 11/10/22 11:43 AST 26 U/L (13-39) 11/10/22 11:43 ALT 21 U/L (7-52) 11/10/22 11:43 Alkaline Phosphatase 63 U/L (34-104) 11/10/22 11:43 Total Protein 7.4 gm/dl (6.0-8.3) 11/10/22 11:43 Albumin 4.3 gm/dl (3.4-5.0) 11/10/22 11:43 Globulin 3.1 gm/dl (2.5-4.0) 11/10/22 11:43 Albumin/Globulin Ratio 1.4 (0.9-2) 11/10/22 11:43 SARS-CoV-2, RNA, NAAT NEGATIVE (NEGATIVE) 11/10/22 14:08 Impressions Hip X-Ray 11/10/22 11:31 XR femur LT 2V routine, XR hip LT 1V HISTORY: 82 years-old Female fall acute left hip pain status post fall COMPARISON: None TECHNIQUE: One view of the left hip with 2 views of the left femur FINDINGS: HIP: Subacute appearing comminuted, impacted and displaced subcapital femoral fracture with corticated margins. It has appearance of the bones. Moderate osteoarthritis of the left hip. FEMUR: Demineralized appearance of the bones. Limited exam secondary to positioning. No additional acute fracture or dislocation identified. IMPRESSION: Subacute appearing displaced and impacted subcapital femoral fracture. ACT 112: Negative or not required by law. The above report was generated using voice recognition software. It may contain grammatical, syntax or spelling errors. Electronically signed by: Jeffrey Gagnon M.D. 11/10/2022 12:47 PM Chest X-Ray 11/10/22 11:32 XR chest 1V portable HISTORY: 82 years-old Female fall acute chest trauma status post fall COMPARISON: 10/11/2016 TECHNIQUE: AP view of the chest FINDINGS: Cardiac silhouette is enlarged. Chronic interstitial coarsening. There is no pneumothorax, pleural effusion, airspace consolidation or pulmonary edema. Bones of the chest appear grossly intact. IMPRESSION: No acute process. ACT 112: Negative or not required by law. The above report was generated using voice recognition software. It may contain grammatical, syntax or spelling errors. Electronically signed by: Jeffrey Gagnon M.D. 11/10/2022 12:39 PM Elbow X-Ray 11/10/22 11:32 XR elbow LT min 3V routine HISTORY: 82 years-old Female fall acute pain of the left elbow COMPARISON: None TECHNIQUE: 3 views of the left elbow FINDINGS: Limited exam secondary to suboptimal lateral view. Demineralized appearance of the bones with moderate osteoarthritis. No acute fracture, dislocation or large joint effusion. IMPRESSION: Limited exam secondary to positioning. No acute fracture identified. ACT 112: Negative or not required by law. The above report was generated using voice recognition software. It may contain grammatical, syntax or spelling errors. Electronically signed by: Jeffrey Gagnon M.D. 11/10/2022 12:44 PM Femur X-Ray 11/10/22 11:32 XR femur LT 2V routine, XR hip LT 1V HISTORY: 82 years-old Female fall acute left hip pain status post fall COMPARISON: None TECHNIQUE: One view of the left hip with 2 views of the left femur FINDINGS: HIP: Subacute appearing comminuted, impacted and displaced subcapital femoral fracture with corticated margins. It has appearance of the bones. Moderate osteoarthritis of the left hip. FEMUR: Demineralized appearance of the bones. Limited exam secondary to positioning. No additional acute fracture or dislocation identified. IMPRESSION: Subacute appearing displaced and impacted subcapital femoral fracture. ACT 112: Negative or not required by law. The above report was generated using voice recognition software. It may contain grammatical, syntax or spelling errors. Electronically signed by: Jeffrey Gagnon M.D. 11/10/2022 12:[address] 11/10/22 11:32 CT head/brain wo con CLINICAL HISTORY: 82 years-old Female with fall. Acute head trauma status post fall TECHNIQUE: Multiple axial CT images of the head were obtained without contrast. A dose lowering technique was utilized adhering to the principles of ALARA. CT DOSE: 547.75 mGy.cm COMPARISON: Brain MRI 06/14/2016 FINDINGS: No acute intracranial hemorrhage, midline shift, intracranial mass, hydrocephalus, territorial ischemia or abnormal extra-axial collection. Involutional changes with chronic microvascular ischemic disease. Cerebrovascular calcifications. The calvarium is intact. Mild mucosal thickening of the ethmoid air cells. Mastoid air cells are clear. Prior bilateral lens repair. IMPRESSION: No acute intracranial abnormality or calvarial fracture. ACT 112: Negative or not required by law. The above report was generated using voice recognition software. It may contain grammatical, syntax or spelling errors. Electronically signed by: Jeffrey Gagnon M.D. 11/10/2022 1:13 PM
[2022-11-10] MEDS ORDERED: LIDOCAINE 2% 2 ML VIAL/AMP(20MG/ML) INFIL ONE (14:45)
[2022-11-10] MEDS ORDERED: SUCCINYLCHOLINE 100MG/5ML SYR IV ONE (14:45)
[2022-11-10] MEDS ORDERED: ONDANSETRON INJ 2 MG/ML 2 ML VIAL ONE ×2 (14:45→17:56)
[2022-11-10] MEDS ORDERED: ROCURONIUM BROMIDE 10 MG/ML 5 ML VIAL IV ONE (14:45)
[2022-11-10] MEDS ORDERED: PROPOFOL IV EMULSION 10 MG/ML 20 ML VIAL IV ONE (14:45)
--- NOTE | 2022-11-10 14:54 | Anesthesiology Consultation ---
Date of Service November 10, 2022 Assessment & Plan Chart Review Chart Review: Acceptable Risk for Surgery Consults Requested none History Surgery Operation Date: 11/10/22 15:00 Proposed Procedures p Bipolar Hip Prosthesis(Left) - Srinivas Damico MD Height/Weight Height: 5 ft 8 in Weight: 64.5 kg Allergies Allergy/AdvReac Type Severity Reaction Status Date / Time No Known Allergies Allergy Unverified 09/05/20 13:02 Medications Home Medications Medication Instructions Recorded Confirmed Last Taken aspirin 325 mg tablet 325 mg PO DAILY #90 tabs 04/23/19 11/10/22 11/09/22 multivitamin (Multiple Vitamins 1 tab PO QAM #30 tabs 04/23/19 11/10/22 Unknown tablet) cyanocobalamin (vitamin B-12) 500 500 mcg PO DAILY 08/12/19 11/10/22 Unknown mcg tablet amlodipine 5 mg-benazepril 20 mg 1 cap PO DAILY #90 caps 11/04/22 11/10/22 capsule oxowzuy-pgxyqcumx-pzou tablet 1 tab PO DAILY 11/10/22 11/10/22 Unknown potassium 99 mg tablet 99 mg PO DAILY 11/10/22 11/10/22 Unknown Active Medications Generic Name Dose Route Start Last Admin Trade Name Freq PRN Reason Stop Dose Admin Acetaminophen 1,000 mg 11/10/22 12:20 11/10/22 13:32 Acetaminophen 500 Mg Tab PO 12/10/22 12:19 1,000 mg Q8H PRN Administration Mild Pain (Rating 1,2,3) Morphine Sulfate 2 mg 11/10/22 12:20 11/10/22 14:24 Morphine Sulfate 2 Mg/Ml Carp IV 11/24/22 12:19 2 mg Q2H PRN Administration Moderate Pain (Rating 3,4,5,6) NPO Date Last Intake of Fluids: 11/10/22 Time Last Intake of Fluids: 13:00 Date Last Intake of Solids: 11/10/22 Time Last Intake of Solids: 08:00 Last Intake of Solids Comment: Dr. Goetz aware that patient had cereal at stated time. Past Medical History Medical History Antiplatelet or antithrombotic long-term use Dyslipidemia Hypertension Left shoulder pain Postural lightheadedness Past Family History Family History Mother Acute myocardial infarction Myocardial infarction Father Acute myocardial infarction Myocardial infarction Sister FH: CABG (coronary artery bypass surgery) Myocardial infarction Other Coronary heart disease Denies family history of Ovarian cancer Prostate cancer Breast cancer Colorectal cancer Past Surgical History Surgical History S/P cataract surgery Social History Smoking Status: Never smoker Do You Dip or Chew Tobacco: No Hx Alcohol Use: No Hx Substance Use: No Physical Exam Vital Signs Last Vital Signs Temp 37.0 C 11/10/22 10:52 Pulse 88 11/10/22 14:13 Resp 19 11/10/22 14:13 BP 170/103 H 11/10/22 14:13 Pulse Ox 93 11/10/22 14:13 O2 Del Method Room Air 11/10/22 14:13 Testing Laboratory Results 11/10/22 11:43 11/10/22 11:43 PT 10.6 Seconds (9.0-12.0) 11/10/22 11:43 INR 1.0 (0.9-1.1) 11/10/22 11:43 APTT 23.8 Seconds (21.0-31.0) 11/10/22 11:43
[2022-11-10] MEDS ORDERED: ePHEDrine sulfate 50 MG/ML AMP IV PRN (14:55)
[2022-11-10] MEDS ORDERED: fentaNYL citrate PF 100 MCG/2 ML VIAL IV PRN (14:55)
[2022-11-10] MEDS ORDERED: PROMETHAZINE HCL 12.5 MG in SODIUM CHLORIDE 0.9% 50 ML IV PRN (14:55)
[2022-11-10] MEDS ORDERED: ONDANSETRON INJ 2 MG/ML 2 ML VIAL IV PRN ×2 (14:55→19:51)
[2022-11-10] MEDS ORDERED: HYDROmorphone INJ 2 MG/ML SYR/VIAL IV PRN (14:55)
[2022-11-10] MEDS ORDERED: ATROPINE SULFATE 0.1 MG/ML 10ML SYR IV PRN (14:55)
[2022-11-10] MEDS ORDERED: TRANEXAMIC ACID / 0.7% NACL 1000MG/100ML BAG IV ONE ×12 (14:55→15:09)
[2022-11-10] MEDS ORDERED: ceFAZolin 330 MG/ML 1 GM VIAL ONE (14:56)
[2022-11-10] MEDS ORDERED: LIDOCAINE 1%/EPINEPHRINE 1:100,000 20 ML VIAL ONE (14:56)
[2022-11-10] MEDS ORDERED: BUPIVACAINE 0.5 % 5 MG/1 ML MPF 30ML VIAL ONE (14:56)
[2022-11-10] MEDS ORDERED: TRANEXAMIC ACID / 0.7% NACL 1,000 MG/100 ML BAG IV SCH ×2 (16:00→16:30)
[2022-11-10] MEDS ORDERED: ceFAZolin 2000MG 2,000 MG/15 ML SYR IV SCH (16:00)
--- NOTE | 2022-11-10 17:06 | XRay Report ---
XR hip LT 1V HISTORY: 82 years-old Female PORTABLE LEFT HIP XTABLE IN OR FOR BADER acute left hip pain COMPARISON: 11/10/2022 TECHNIQUE: Crosstable lateral view of the left hip FINDINGS: Left hip arthroplasty demonstrates satisfactory alignment. Expected postoperative soft tissue swellin g with deep tissue air. IMPRESSION: Satisfactory alignment of the left hip total joint arthroplasty. ACT 112: Negative or not required by law. The above report was generated using voice recognition software. It may contain grammatical, syntax o r spelling errors. Electronically signed by: Jeffrey Gagnon M.D. 11/10/2022 5:05 PM
--- NOTE | 2022-11-10 17:20 | Emergency Department Note ---
History of Present Illness General Chief complaint: Hip Pain Stated complaint: FALL, L HIP PAIN Time Seen by Provider: 11/10/22 11:11 History of Present Illness Provider complaint: Left hip pain Onset (ago): hour(s) 1 Maximum Pain Intensity: 3 82-year-old female presents emergency department for left hip pain. Patient states she was getting ready for je[employer] and then tripped and fell on her left side. Patient states she is not sure if she hit her head. Patient states her pain is made worse with movement. Patient reports she has a small tear of her skin on her left elbow but is able to move her left elbow. No blood thinners. Home Medications Medication Instructions Recorded Confirmed Type aspirin 325 mg tablet 325 mg PO DAILY #90 tabs 04/23/19 11/10/22 Rx multivitamin (Multiple Vitamins 1 tab PO QAM #30 tabs 04/23/19 11/10/22 Rx tablet) cyanocobalamin (vitamin B-12) 500 500 mcg PO DAILY 08/12/19 11/10/22 History mcg tablet amlodipine 5 mg-benazepril 20 mg 1 cap PO DAILY #90 caps 11/04/22 11/10/22 Rx capsule fyivbov-qeunhiosm-kjme tablet 1 tab PO DAILY 11/10/22 11/10/22 History potassium 99 mg tablet 99 mg PO DAILY 11/10/22 11/10/22 History Allergies Allergy/AdvReac Type Severity Reaction Status Date / Time No Known Allergies Allergy Unverified 09/05/20 13:02 Past Med/Surg History Medical History Antiplatelet or antithrombotic long-term use Dyslipidemia Hypertension Left shoulder pain Postural lightheadedness Surgical History S/P cataract surgery Family History Mother Acute myocardial infarction Myocardial infarction Father Acute myocardial infarction Myocardial infarction Sister FH: CABG (coronary artery bypass surgery) Myocardial infarction Other Coronary heart disease Denies family history of Ovarian cancer Prostate cancer Breast cancer Colorectal cancer Social History Smoking Status: Never smoker Second Hand Exposure: No; Do You Dip or Chew Tobacco: No; Hx Alcohol Use: No Hx Substance Use: No Preferred Language: Ukrainian Visual Impairment: No Limitations Hearing Ability: Normal marital status: / Current Living Situation: Alone current occupational status: retired current occupation: worked with the [employer] Feels Safe at Home: Yes Childhood Exposure to Second-Hand Smoke: No Diet: regular Dental Care, Regularly: No Physical Activity Frequency: Daily Physical Activity Frequency Comment: house chores, yard work Seatbelt Use: always Sunscreen Use: No Physical Exam Vital Signs Vital Signs - 24 hr 11/10/22 10:52 11/10/22 13:06 11/10/22 14:13 Temperature 37.0 C Temperature Source Oral Pulse Rate 79 83 Pulse Rate [Right Brachial] 88 Pulse Rhythm [Right Brachial] Regular Pulse Strength [Right Brachial] Normal Respiratory Rate 17 19 Respiratory Effort / Characteristics Non-Labored Non-Labored Spontaneous Respiratory Depth Normal Normal Respiratory Pattern Regular Blood Pressure 137/75 Blood Pressure [Right Arm] 170/103 H Blood Pressure Mean 95 Blood Pressure Mean [Right Arm] 125 Pulse Oximetry 95 93 Oxygen Delivery Method Room Air Room Air Sepsis Recent Fever Within 48 Hours No Sepsis New/Unexplained Change in Mental Status N/A Sepsis Action Taken by Nursing No Action Required Physical Exam HENT: Exam performed. -Head: Normocephalic and atraumatic. -Right Ear: External ear normal. No mastoid erythema -Left Ear: External ear normal. No mastoid erythema -Mouth/Throat: The oropharynx is clear and moist. No trismus in the jaw. No dental abscesses or uvula swelling. No oropharyngeal exudate or tonsillar abscesses. EYES: Conjunctivae and EOM are normal. Pupils are equal, round, and reactive to light. Right eye exhibits no discharge. Left eye exhibits no discharge. No scleral icterus. NECK: Normal range of motion. Neck supple. No JVD present. No spinous process tenderness present. CV: Normal rate, regular rhythm, normal heart sounds and intact distal pulses. There is no peripheral edema. Palpable radial pulses bue. PULM/CHEST: Effort normal and breath sounds normal. No respiratory distress. No stridor. She has no wheezes. She has no rales. ABD: The abdomen is soft.There is no tenderness. There is no rebound, no guarding MUSC/SKEL: Left lower extremity is externally rotated and shortened. Pain on palpation of the left hip. Palpable DP and PT pulses. Right lower extremity within normal limits. Left upper extremity: There is a small skin tear over the patient's left lateral elbow patient has full range of motion at the elbow compartments of the upper extremity are soft. Palpable radial and ulnar pulse. Motor and sensation intact in the median radial and ulnar nerve distribution. Right upper extremity: Within normal limits. NEURO: Motor and sensation are grossly intact. Course Course 1111: The patient was evaluated in room C9. A complete history and physical exam was performed Administered Medications Acetaminophen (Acetaminophen 500 Mg Tab) 1,000 mg PO Q8H PRN PRN Reason: Mild Pain (Rating 1,2,3) Stop: 12/10/22 12:19 Last Admin: 11/10/22 13:32 Dose: 1,000 mg Documented By: GGG Cefazolin Sodium (Ancef 2000mg) 2,000 mg in 15 mls @ 3.75 mls/min IV PREOP PRESLEY; Protocol Stop: 11/10/22 23:59 Last Admin: 11/10/22 15:13 Dose: 3.75 mls/min Documented By: [id number] Morphine Sulfate (Morphine Sulfate 2 Mg/Ml Carp) 2 mg IV Q2H PRN PRN Reason: Moderate Pain (Rating 3,4,5,6) Stop: 11/24/22 12:19 Last Admin: 11/10/22 14:24 Dose: 2 mg Documented By: Admin: 11/10/22 12:27 Dose: 2 mg Documented By: [facility] Medical Decision Making Laboratory Data Attestation: I reviewed the patient's lab results. 11/10/22 11:43 11/10/22 11:43 Lab Results 11/10/22 11/10/22 11/10/22 Range/Units 11:43 11:43 11:43 WBC 10.43 (4.8-10.8) K/ul RBC 5.02 (4.20-5.40) M/uL Hgb 15.1 (12.0-16.0) g/dl Hct 46.0 (37.0-47.0) % MCV 91.6 (80.0-100.0) fL MCH 30.1 (25.0-34.0) pg MCHC 32.8 (32.0-36.0) g/dL RDW Std Deviation 48.3 H (36.4-46.3) fL RDW Coeff of Reny 14.4 (11.5-14.5) % Plt Count 188 (130-400) K/uL MPV 10.1 (9.4-12.4) fL Immature Gran % (Auto) 0.4 % Neut % (Auto) 87.0 % Lymph % (Auto) 6.7 % Hoke % (Auto) 5.1 % Eos % (Auto) 0.4 % Baso % (Auto) 0.4 % Neut # (Auto) 9.08 H (1.40-6.50) K/uL Lymph # (Auto) 0.70 L (1.2-3.4) K/uL Hoke # (Auto) 0.53 (0.11-0.59) K/uL Eos # (Auto) 0.04 (0-0.50) K/uL Baso # (Auto) 0.04 (0-0.2) K/uL Immature Gran # (Auto) 0.04 (0.01-0.20) K/uL PT 10.6 (9.0-12.0) Seconds INR 1.0 (0.9-1.1) APTT 23.8 (21.0-31.0) Seconds PTT Ratio 0.8 Sodium 141 (136-145) mmol/L Potassium 3.7 (3.5-5.1) mmol/L Chloride 105 (98-107) mmol/L Carbon Dioxide 27 (21-32) mmol/L Anion Gap 9 (3-11) BUN 28 H (6-23) mg/dl Creatinine 0.76 (0.6-1.2) mg/dl Est Cr Clr Drug Dosing 56.6 ml/min Est GFR ( Amer) 84.1 ml/min Est GFR (Non-Af Amer) 72.5 ml/min BUN/Creatinine Ratio 36.8 H (10-20) Glucose 104 H (70-99(Fasting)) mg/dl Calcium 9.7 (8.6-10.3) mg/dl Total Bilirubin 0.7 (0.2-1.0) mg/dl AST 26 (13-39) U/L ALT 21 (7-52) U/L Alkaline Phosphatase 63 (34-104) U/L Total Protein 7.4 (6.0-8.3) gm/dl Albumin 4.3 (3.4-5.0) gm/dl Globulin 3.1 (2.5-4.0) gm/dl Albumin/Globulin Ratio 1.4 (0.9-2) SARS-CoV-2, RNA, NAAT (NEGATIVE) 11/10/22 Range/Units 14:08 WBC (4.8-10.8) K/ul RBC (4.20-5.40) M/uL Hgb (12.0-16.0) g/dl Hct (37.0-47.0) % MCV (80.0-100.0) fL MCH (25.0-34.0) pg MCHC (32.0-36.0) g/dL RDW Std Deviation (36.4-46.3) fL RDW Coeff of Reny (11.5-14.5) % Plt Count (130-400) K/uL MPV (9.4-12.4) fL Immature Gran % (Auto) % Neut % (Auto) % Lymph % (Auto) % Hoke % (Auto) % Eos % (Auto) % Baso % (Auto) % Neut # (Auto) (1.40-6.50) K/uL Lymph # (Auto) (1.2-3.4) K/uL Hoke # (Auto) (0.11-0.59) K/uL Eos # (Auto) (0-0.50) K/uL Baso # (Auto) (0-0.2) K/uL Immature Gran # (Auto) (0.01-0.20) K/uL PT (9.0-12.0) Seconds INR (0.9-1.1) APTT (21.0-31.0) Seconds PTT Ratio Sodium (136-145) mmol/L Potassium (3.5-5.1) mmol/L Chloride (98-107) mmol/L Carbon Dioxide (21-32) mmol/L Anion Gap (3-11) BUN (6-23) mg/dl Creatinine (0.6-1.2) mg/dl Est Cr Clr Drug Dosing ml/min Est GFR ( Amer) ml/min Est GFR (Non-Af Amer) ml/min BUN/Creatinine Ratio (10-20) Glucose (70-99(Fasting)) mg/dl Calcium (8.6-10.3) mg/dl Total Bilirubin (0.2-1.0) mg/dl AST (13-39) U/L ALT (7-52) U/L Alkaline Phosphatase (34-104) U/L Total Protein (6.0-8.3) gm/dl Albumin (3.4-5.0) gm/dl Globulin (2.5-4.0) gm/dl Albumin/Globulin Ratio (0.9-2) SARS-CoV-2, RNA, NAAT NEGATIVE (NEGATIVE) Imaging Data Attestation: I personally reviewed and interpreted this imaging study as follows: My Impression: Hip x-ray: Left hip fracture Femur x-ray: No acute fracture of the left femur, left hip fracture Radiologist's Impression: Hip X-Ray 11/10/22 00:00 XR hip LT 1V HISTORY: 82 years-old Female PORTABLE LEFT HIP XTABLE IN OR FOR BADER acute left hip pain COMPARISON: 11/10/2022 TECHNIQUE: Crosstable lateral view of the left hip FINDINGS: Left hip arthroplasty demonstrates satisfactory alignment. Expected postoperative soft tissue swelling with deep tissue air. IMPRESSION: Satisfactory alignment of the left hip total joint arthroplasty. ACT 112: Negative or not required by law. The above report was generated using voice recognition software. It may contain grammatical, syntax or spelling errors. Electronically signed by: Jeffrey Gagnon M.D. 11/10/2022 5:05 PM Hip X-Ray 11/10/22 11:31 XR femur LT 2V routine, XR hip LT 1V HISTORY: 82 years-old Female fall acute left hip pain status post fall COMPARISON: None TECHNIQUE: One view of the left hip with 2 views of the left femur FINDINGS: HIP: Subacute appearing comminuted, impacted and displaced subcapital femoral fracture with corticated margins. It has appearance of the bones. Moderate osteoarthritis of the left hip. FEMUR: Demineralized appearance of the bones. Limited exam secondary to positioning. No additional acute fracture or dislocation identified. IMPRESSION: Subacute appearing displaced and impacted subcapital femoral fracture. ACT 112: Negative or not required by law. The above report was generated using voice recognition software. It may contain grammatical, syntax or spelling errors. Electronically signed by: Jeffrey Gagnon M.D. 11/10/2022 12:47 PM Chest X-Ray 11/10/22 11:32 XR chest 1V portable HISTORY: 82 years-old Female fall acute chest trauma status post fall COMPARISON: 10/11/2016 TECHNIQUE: AP view of the chest FINDINGS: Cardiac silhouette is enlarged. Chronic interstitial coarsening. There is no pneumothorax, pleural effusion, airspace consolidation or pulmonary edema. Bones of the chest appear grossly intact. IMPRESSION: No acute process. ACT 112: Negative or not required by law. The above report was generated using voice recognition software. It may contain grammatical, syntax or spelling errors. Electronically signed by: Jeffrey Gagnon M.D. 11/10/2022 12:39 PM Elbow X-Ray 11/10/22 11:32 XR elbow LT min 3V routine HISTORY: 82 years-old Female fall acute pain of the left elbow COMPARISON: None TECHNIQUE: 3 views of the left elbow FINDINGS: Limited exam secondary to suboptimal lateral view. Demineralized appearance of the bones with moderate osteoarthritis. No acute fracture, dislocation or large joint effusion. IMPRESSION: Limited exam secondary to positioning. No acute fracture identified. ACT 112: Negative or not required by law. The above report was generated using voice recognition software. It may contain grammatical, syntax or spelling errors. Electronically signed by: Jeffrey Gagnon M.D. 11/10/2022 12:44 PM Femur X-Ray 11/10/22 11:32 XR femur LT 2V routine, XR hip LT 1V HISTORY: 82 years-old Female fall acute left hip pain status post fall COMPARISON: None TECHNIQUE: One view of the left hip with 2 views of the left femur FINDINGS: HIP: Subacute appearing comminuted, impacted and displaced subcapital femoral fracture with corticated margins. It has appearance of the bones. Moderate osteoarthritis of the left hip. FEMUR: Demineralized appearance of the bones. Limited exam secondary to positioning. No additional acute fracture or dislocation identified. IMPRESSION: Subacute appearing displaced and impacted subcapital femoral fracture. ACT 112: Negative or not required by law. The above report was generated using voice recognition software. It may contain grammatical, syntax or spelling errors. Electronically signed by: Jeffrey Gagnon M.D. 11/10/2022 12:[address] 11/10/22 11:32 CT head/brain wo con CLINICAL HISTORY: 82 years-old Female with fall. Acute head trauma status post fall TECHNIQUE: Multiple axial CT images of the head were obtained without contrast. A dose lowering technique was utilized adhering to the principles of ALARA. CT DOSE: 547.75 mGy.cm COMPARISON: Brain MRI 06/14/2016 FINDINGS: No acute intracranial hemorrhage, midline shift, intracranial mass, hydrocephalus, territorial ischemia or abnormal extra-axial collection. Involutional changes with chronic microvascular ischemic disease. Cereb rovascular calcifications. The calvarium is intact. Mild mucosal thickening of the ethmoid air cells. Mastoid air cells are clear. Prior bilateral lens repair. IMPRESSION: No acute intracranial abnormality or calvarial fracture. ACT 112: Negative or not required by law. The above report was generated using voice recognition software. It may contain grammatical, syntax or spelling errors. Electronically signed by: Jeffrey Gagnon M.D. 11/10/2022 1:13 PM MDM Narrative Cardiac monitoring: An order was placed for continuous cardiac monitoring. The monitor shows a rate of 90 with sinus rhythm interpreted by me Vital signs stable. Imaging confirms left hip x-ray. Discussed the case with [facility] orthopedics on-call Dr. Damico who states he will evaluate the patient for operative procedure today. Patient will be admitted to the [facility] medical team Dr. Narvaez notifed Impression & Plan Closed left hip fracture Discharge Plan Visit Data Chief Complaint: Hip Pain Stated Complaint: FALL, L HIP PAIN ED Provider: Sergio Arguelles Discharge Problem: Closed left hip fracture Patient Disposition: Admitted As Inpatient Discharge Instructions Interventions: ED Discharge Assessment Last Done: 11/10/22 14:30
--- NOTE | 2022-11-10 17:51 | Post Operative Brief Note ---
Immediate Post Op Note v1 Date of Surgery November 10, 2022 Pre & Post Diagnosis Operation Date: 11/10/22 15:00 Pre-Op Diagnosis: Closed left hip fracture. Post-Op Diagnosis: Closed left hip fracture. I identified the patient and participated in the time-out.: Yes Procedure Operation Date: 11/10/22 15:00 Actual Procedures p Left hip hemiarthroplasty.(Left) - Srinivas Damico MD Surgeon Srinivas Damico MD Animal Keeper C LUANNE Serrano (No fellow avail) Estimated Blood Loss 120 Findings Consistent with Post-Op Diagnosis Fluids 900 cc Specimens Left hip contents Drains Abraham Catheter Anesthesia Type General Complications none
--- NOTE | 2022-11-10 17:52 | Operative Report ---
Post Operative Report Pre & Post Diagnosis Operation Date: 11/10/22 15:00 Pre-Op Diagnosis: Closed left hip fracture. Post-Op Diagnosis: Closed left hip fracture. 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 After orthopedic consult discussing the patients treatment options of conservative versus surgical intervention, she agreed for a planned hemiarthroplasty. Since the patient was ambulatory prior to the injury and to avoid the risks of bed sores, pulmonary complications, and to give the patient the best chance for ambulation, I recommended surgery. The patient understands the risks of surgery, which include but are not limited to: bleeding, infection, re-operation, damage to nerves and arteries, continued pain, failure of the hardware, dislocation, DVT, and . In addition the patient is aware of the 20-30% morbidity associated with hip fracture for up to 1 year following a hip fracture. The patient understands all of these instructions and explanations, all of their questions have been satisfactorily addressed. The patient has elected to proceed with surgery and the informed consent was signed. Description of Procedure Ju Serrano PA-C is assisting with positioning, retraction, dislocating/relocating the hip, and closure due to fellow not available. IMPLANTS: 1) LD/Fx, Size 14 Cemented (Chandrika/Biomet). 2) Femoral Head 28mm Diameter, + 3.5 mm Neck Length. 3) 49 mm Multipolar Bipolar Cup. 4) 28 mm ID Liner, Multipolar Bipolar Cup. 5) Distal Centralizer 12 mm. 6) Palacos cement x 2 PROCEDURE: The patient was taken to the Operating Room and placed in the lateral position with Stulberg following general anesthesia administration. A multidisciplinary time-out was performed identifying my initials on the left lower limb as the c orrect and operative limb. Prior to the incision being made, 2 grams of intravenous Ancef were given. The left lower extremity was prepped in the standard fashion. The trochanter was marked as was the planned incision 1/3 proximal and 2/3 distal to the tip of the greater trochanter. The incision was injected with a 50:50 mixture of 1% Lidocaine epi and 0.5% Bupivacaine plain for a total of 10c c. A standard posterior approach was made. The planned incision was carried down through the Tensor Fascia Mary, which was then split in-line with its fibers. The Gluteus Darell was bluntly dissected. The Piriformis and short external rotators were dissected off the capsule and femur and tagged for later repair. The capsule was incised and freed. The Neck cut was made to allow removal of the femoral head and comminuted fragments. The femoral canal was prepared with Box osteotome, followed by a canal finder. The femur was sequentially broached in the standard fashion, and trial heads were placed. Fluoroscopy was brought in to ensure adequate proper alignment, fill of the canal, head size, and leg length. It was felt the neck could be shortened. Fluoroscopy showed good canal fill and good position. The trial components were removed and the wound and femoral canal were copiously irrigated and dried. The femur was cemented using 3rd generation technique followed by placement of the components in the standard fashion and the hip reduced. There was excellent stability with no sense of dislocation with 30 degrees adduction, flexion 90 degrees, and internal rotation to 45 degrees. The wounds were copiously irrigated. The External rotators and capsule were closed over bone bridges with #2 FiberWire. The Tensor Fascia Mary was closed with #1 Vicryl and and 0 Startafix. The subcutaneous fat had a few stay sutures placed using 2-0 Vicryl. The subcutaneous tissue was closed with 3-0 Vicryl. The skin was closed with Zipline and shield. The incisions were covered with 4 x 4's, ABD, and foam tape. The patient was transferred to her hospital bed and taken to the PACU in stable condition. The sponge and needle counts were correct. Post-op Instructions: The patient was admitted to back to Hospitalist service on the Med/Surg floor. Final x-rays will be obtained in the ICU acting as the PACU. The patient will be WBAT with a walker. The patient will be seen by PT/OT. Total hip precautions will be followed. The patient's labs will be checked in the am. DVT prophylaxis will be with TEDs, mechanical devices and will ASA in the AM. I attest to the content of the Intraoperative Record and any orders documented therein. Any exceptions are noted below.
[2022-11-10] MEDS ORDERED: DEXAMETHASONE SOD INJ 4 MG/ML VIAL ONE (17:56)
--- NOTE | 2022-11-10 18:22 | Operative Report ---
Post Operative Report Pre & Post Diagnosis Operation Date: 11/10/22 15:00 Pre-Op Diagnosis: Closed left hip fracture. Post-Op Diagnosis: Closed left hip fracture. I identified the patient and participated in the time-out.: Yes Procedure Operation Date: 11/10/22 15:00 Actual Procedures p Left hip hemiarthroplasty.(Left) - Srinivas Damico MD Surgeon Nina Damico MD School Health Aide Ju Serrano PA-C (No fellow avail) Estimated Blood Loss 120 Findings Consistent with Post-Op Diagnosis see operative report Specimens see operative report Drains none Complications none Disposition Accompanied Patient To Recovery: Yes Indications This 82 year old female presented through the ED for evaluation of left-sided hip pain after falling. She was found to have a left-sided hip fracture. Hemiarthroplasty was recommended. The patient elected to proceed with surgical intervention in hopes of improving her pain and function. Preoperative imaging was obtained. Description of Procedure The patient was administered a spinal anesthetic and then taken to the operating room where she was given sedation. She was prepped and draped in the usual sterile fashion. Please see Dr. Damico's operative report for specifics of the procedure. I was present for the entire case from initial patient positioning through final wound closure. Assistance was provided in tissue retraction, hemostasis, trial implant placement, final implant placement, and final wound closure. The patient was taken to the ICU for recovery in satisfactory condition. I attest to the content of the Intraoperative Record and any orders documented therein. Any exceptions are noted below.
--- NOTE | 2022-11-10 18:38 | Anesthesiology Progress Note ---
Date of Service November 10, 2022 Anesthesia Post Procedure Vital Signs Vital Signs: Temp Pulse Pulse Pulse Resp BP BP 11/10/22 18:30 83 18 157/61 H 11/10/22 18:20 89 18 169/88 H 11/10/22 18:10 99 H 20 153/87 H 11/10/22 18:07 36.3 C L 91 H 20 161/88 H 11/10/22 14:13 88 19 11/10/22 13:06 83 11/10/22 10:52 37.0 C 79 17 137/75 BP Pulse Ox O2 Del Method O2 Flow Rate 11/10/22 18:30 95 Nasal Cannula 2 11/10/22 18:20 96 Nasal Cannula 2 11/10/22 18:10 97 Nasal Cannula 3 11/10/22 18:07 97 Nasal Cannula 3 11/10/22 14:13 170/103 H 93 Room Air 11/10/22 13:06 11/10/22 10:52 95 Room Air Pain Intensity Left Hip: Pain Intensity: 9 Transfer of Care Handoff Completed per policy Notes Mental Status: alert / awake / arousable and participated in evaluation Patient Amnestic to Procedure: Yes Nausea / Vomiting: adequately controlled Pain: adequately controlled Airway Patency, RR, SpO2: stable & adequate BP & HR: stable & adequate Hydration State: stable & adequate Anesthetic Complications: no major complications apparent
--- NOTE | 2022-11-10 18:50 | XRay Report ---
XR hip 1V LT w pelvis HISTORY: 82 years-old Female IN PACU - Post Surgical [arthroplasty COMPARISON: Radiograph of same day at 4:23 PM TECHNIQUE: AP view the pelvis with cross table lateral view of the left hip FINDINGS: Satisfactory alignment of the left hip total arthroplasty. Expected postoperative soft tissue swellin g with deep tissue air. Moderate osteoarthritis of the right hip. IMPRESSION: Left hip arthroplasty with expected postoperative changes. ACT 112: Negative or not required by law. The above report was generated using voice recognition software. It may contain grammatical, syntax o r spelling errors. Electronically signed by: Jeffrey Gagnon M.D. 11/10/2022 6:49 PM
[2022-11-10] MEDS ORDERED: ALUMINUM/MAGNESIUM SUSP 30 ML UDC PO PRN (19:51)
[2022-11-10] MEDS ORDERED: NALOXONE HCL 0.4 MG/1 ML VIAL/CARP IV PRN ×2 (19:51)
[2022-11-10] MEDS ORDERED: diphenhydrAMINE 50 MG/ML VIAL IV PRN (19:51)
[2022-11-10] MEDS ORDERED: MoRPHine SULFATE 2 MG/ML CARP IV PRN (19:51)
[2022-11-10] MEDS ORDERED: LACTATED RINGER'S 1,000 ML IV SCH (19:51)
[2022-11-10] MEDS ORDERED: MAGNESIUM HYDROXIDE SUSP 30 ML UDC PO PRN (19:51)
[2022-11-10] MEDS ORDERED: HYDROmorphone INJ 0.5 MG/0.5 ML SYR IV PRN (19:51)
[2022-11-10] MEDS ORDERED: METOCLOPRAMIDE HCL INJ 5 MG/ML 2 ML VIAL IV PRN (19:51)
[2022-11-10] MEDS ORDERED: bisacodyL 10 MG SUPP PR PRN (19:51)
[2022-11-10] MEDS ORDERED: DOCUSATE SODIUM/SENNA 50/8.6MG TAB PO SCH (21:00)
[2022-11-10] MEDS: SODIUM CHLORIDE 0.9% 1000ML 1,000 ML IV SCH (21:57)
[2022-11-10] MEDS: KETOROLAC TROMETHAMINE 15 MG/ML VIAL IV SCH (21:57)
[2022-11-10] MEDS: SENNA 8.6 MG TAB PO SCH (21:58)
[2022-11-10] MEDS: ceFAZolin 2000MG 2,000 MG/15 ML SYR IV SCH (21:58)
[2022-11-10] MEDS ORDERED: ACETAMINOPHEN 1,000 MG/100 ML VIAL IV PRN (22:00)
[2022-11-11] MEDS: KETOROLAC TROMETHAMINE 15 MG/ML VIAL IV SCH ×3 (02:45→15:15)
[2022-11-11] MEDS: SODIUM CHLORIDE 0.9% 1000ML 1,000 ML IV SCH (06:27)
[2022-11-11] MEDS: ceFAZolin 2000MG 2,000 MG/15 ML SYR IV SCH (06:38)
[2022-11-11 07:47] LABS: Basophils # (auto) 0.03 K/uL (0-0.2); Basophils % (auto) 0.3 %; Eosinophils # (auto) 0.02 K/uL (0-0.50); Eosinophils % (auto) 0.2 %; Hematocrit (blood only) 36.7 % (37.0-47.0); Hemoglobin 12.1 g/dl (12.0-16.0); Immature Granulocytes # (auto) 0.04 K/uL (0.01-0.20); Immature Granulocytes % (auto) 0.3 %; Lymphocytes # (auto) 0.92 K/uL (1.2-3.4); Lymphocytes % (auto) 7.7 %; Mean Corpuscular Volume 91.1 fL (80.0-100.0); Mean Platelet Volume 9.9 fL (9.4-12.4); Monocytes # (auto) 1.22 K/uL (0.11-0.59); Monocytes % (auto) 10.2 %; Neutrophils # (auto) 9.75 K/uL (1.40-6.50); Neutrophils % (auto) 81.3 %; Platelet Count 177 K/uL (130-400); RDW Coefficient of Variation 14.6 % (11.5-14.5); RDW Standard Deviation 48.6 fL (36.4-46.3); Red Blood Count 4.03 M/uL (4.20-5.40); White Blood Count 11.98 K/ul (4.8-10.8)
[2022-11-11 07:49] LABS: BUN Creatinine Ratio 31.8 (10-20); Calcium 8.5 mg/dl (8.6-10.3); Creatinine Clr Calc Pharmacy 40.6 ml/min; Est GFR (African American) 55.6 ml/min
[2022-11-11] MEDS ORDERED: dexAMETHasone 10 MG in SYRINGE 0 ML IV SCH (08:00)
[2022-11-11] MEDS: ASCORBIC ACID 500 MG TAB PO SCH ×2 (09:24→16:54)
[2022-11-11] MEDS: MULTIVITAMIN TAB PO SCH (09:25)
[2022-11-11] MEDS: ASPIRIN 325 MG ECTAB PO SCH ×2 (09:25→20:48)
[2022-11-11] MEDS: FERROUS GLUCONATE 324 MG TAB PO SCH ×2 (09:25→16:54)
--- NOTE | 2022-11-11 09:29 | Orthopedic Progress Note ---
Date of Service November 11, 2022 Assessment & Plan (1) Closed left hip fracture: Plan: POD #1 s/p Left hip hemiarthroplasty, doing as well as expected. Resume diet. WBAT with walker. OOB to chair. Total hip precautions. Continue pain control. DVT prophylaxis: TEDs 3 weeks, foot pumps while in hospital, ASA 325 mg BID for 6 weeks. PT/OT. D/C planning. Continue care per primary service Admission and Anticipated Discharge Date Admission Date: November 10, 2022 Subjective Doing better Physical Exam Physical Exam: LLE: Sensation to light touch is diminished due to neuropathy, unchanged per patient. 2+ PT. Able to wiggle toes. Calf soft and non-tender. Abduction pillow in place. Dressing clean dry intact Results & Data Vital Signs (Past 12 Hours) Vital Signs Temp Pulse Resp BP Pulse Ox O2 Del Method O2 Flow Rate 11/11/22 07:37 37.0 C 77 16 128/57 L 95 Room Air 11/11/22 06:00 36.8 C 80 18 122/66 93 Nasal Cannula 2 11/11/22 02:00 36.8 C 77 18 123/69 93 Nasal Cannula 2 11/10/22 22:00 36.8 C 74 18 113/72 97 Room Air Laboratory Results Laboratory Results WBC 11.98 K/ul (4.8-10.8) H 11/11/22 07:12 RBC 4.03 M/uL (4.20-5.40) L 11/11/22 07:12 Hgb 12.1 g/dl (12.0-16.0) D 11/11/22 07:12 Hct 36.7 % (37.0-47.0) L 11/11/22 07:12 MCV 91.1 fL (80.0-100.0) 11/11/22 07:12 MCH 30.0 pg (25.0-34.0) 11/11/22 07:12 MCHC 33.0 g/dL (32.0-36.0) 11/11/22 07:12 RDW Std Deviation 48.6 fL (36.4-46.3) H 11/11/22 07:12 RDW Coeff of Reny 14.6 % (11.5-14.5) H 11/11/22 07:12 Plt Count 177 K/uL (130-400) 11/11/22 07:12 MPV 9.9 fL (9.4-12.4) 11/11/22 07:12 Immature Gran % (Auto) 0.3 % 11/11/22 07:12 Neut % (Auto) 81.3 % 11/11/22 07:12 Lymph % (Auto) 7.7 % 11/11/22 07:12 Cole % (Auto) 10.2 % 11/11/22 07:12 Eos % (Auto) 0.2 % 11/11/22 07:12 Baso % (Auto) 0.3 % 11/11/22 07:12 Neut # (Auto) 9.75 K/uL (1.40-6.50) H 11/11/22 07:12 Lymph # (Auto) 0.92 K/uL (1.2-3.4) L 11/11/22 07:12 Cole # (Auto) 1.22 K/uL (0.11-0.59) H 11/11/22 07:12 Eos # (Auto) 0.02 K/uL (0-0.50) 11/11/22 07:12 Baso # (Auto) 0.03 K/uL (0-0.2) 11/11/22 07:12 Immature Gran # (Auto) 0.04 K/uL (0.01-0.20) 11/11/22 07:12 PT 10.6 Seconds (9.0-12.0) 11/10/22 11:43 INR 1.0 (0.9-1.1) 11/10/22 11:43 APTT 23.8 Seconds (21.0-31.0) 11/10/22 11:43 PTT Ratio 0.8 11/10/22 11:43 Sodium 143 mmol/L (136-145) 11/11/22 07:12 Potassium 4.0 mmol/L (3.5-5.1) 11/11/22 07:12 Chloride 108 mmol/L (98-107) H 11/11/22 07:12 Carbon Dioxide 27 mmol/L (21-32) 11/11/22 07:12 Anion Gap 8 (3-11) 11/11/22 07:12 BUN 34 mg/dl (6-23) H 11/11/22 07:12 Creatinine 1.07 mg/dl (0.6-1.2) D 11/11/22 07:12 Est Cr Clr Drug Dosing 40.6 ml/min 11/11/22 07:12 Est GFR ( Amer) 55.6 ml/min 11/11/22 07:12 Est GFR (Non-Af Amer) 48.0 ml/min 11/11/22 07:12 BUN/Creatinine Ratio 31.8 (10-20) H 11/11/22 07:12 Glucose 123 mg/dl (70-99(Fasting)) H 11/11/22 07:12 Calcium 8.5 mg/dl (8.6-10.3) L 11/11/22 07:12 Total Bilirubin 0.7 mg/dl (0.2-1.0) 11/10/22 11:43 AST 26 U/L (13-39) 11/10/22 11:43 ALT 21 U/L (7-52) 11/10/22 11:43 Alkaline Phosphatase 63 U/L (34-104) 11/10/22 11:43 Total Protein 7.4 gm/dl (6.0-8.3) 11/10/22 11:43 Albumin 4.3 gm/dl (3.4-5.0) 11/10/22 11:43 Globulin 3.1 gm/dl (2.5-4.0) 11/10/22 11:43 Albumin/Globulin Ratio 1.4 (0.9-2) 11/10/22 11:43 SARS-CoV-2, RNA, NAAT NEGATIVE (NEGATIVE) 11/10/22 14:08 Blood Type A Positive 11/10/22 20:23 Antibody Screen NEGATIVE 11/10/22 20:23 Impressions Hip X-Ray 11/10/22 11:31 XR femur LT 2V routine, XR hip LT 1V HISTORY: 82 years-old Female fall acute left hip pain status post fall COMPARISON: None TECHNIQUE: One view of the left hip with 2 views of the left femur FINDINGS: HIP: Subacute appearing comminuted, impacted and displaced subcapital femoral fracture with corticated margins. It has appearance of the bones. Moderate osteoarthritis of the left hip. FEMUR: Demineralized appearance of the bones. Limited exam secondary to positioning. No additional acute fracture or dislocation identified. IMPRESSION: Subacute appearing displaced and impacted subcapital femoral fracture. ACT 112: Negative or not required by law. The above report was generated using voice recognition software. It may contain grammatical, syntax or spelling errors. Electronically signed by: Jeffrey Gagnon M.D. 11/10/2022 12:47 PM Chest X-Ray 11/10/22 11:32 XR chest 1V portable HISTORY: 82 years-old Female fall acute chest trauma status post fall COMPARISON: 10/11/2016 TECHNIQUE: AP view of the chest FINDINGS: Cardiac silhouette is enlarged. Chronic interstitial coarsening. There is no pneumothorax, pleural effusion, airspace consolidation or pulmonary edema. Bones of the chest appear grossly intact. IMPRESSION: No acute process. ACT 112: Negative or not required by law. The above report was generated using voice recognition software. It may contain grammatical, syntax or spelling errors. Electronically signed by: Jeffrey Gagnon M.D. 11/10/2022 12:39 PM Elbow X-Ray 11/10/22 11:32 XR elbow LT min 3V routine HISTORY: 82 years-old Female fall acute pain of the left elbow COMPARISON: None TECHNIQUE: 3 views of the left elbow FINDINGS: Limited exam secondary to suboptimal lateral view. Demineralized appearance of the bones with moderate osteoarthritis. No acute fracture, dislocation or large joint effusion. IMPRESSION: Limited exam secondary to positioning. No acute fracture identified. ACT 112: Negative or not required by law. The above report was generated using voice recognition software. It may contain grammatical, syntax or spelling errors. Electronically signed by: Jeffrey Gagnon M.D. 11/10/2022 12:44 PM Femur X-Ray 11/10/22 11:32 XR femur LT 2V routine, XR hip LT 1V HISTORY: 82 years-old Female fall acute left hip pain status post fall COMPARISON: None TECHNIQUE: One view of the left hip with 2 views of the left femur FINDINGS: HIP: Subacute appearing comminuted, impacted and displaced subcapital femoral fracture with corticated margins. It has appearance of the bones. Moderate osteoarthritis of the left hip. FEMUR: Demineralized appearance of the bones. Limited exam secondary to positioning. No additional acute fracture or dislocation identified. IMPRESSION: Subacute appearing displaced and impacted subcapital femoral fracture. ACT 112: Negative or not required by law. The above report was generated using voice recognition software. It may contain grammatical, syntax or spelling errors. Electronically signed by: Jeffrey Gagnon M.D. 11/10/2022 12:[address] 11/10/22 11:32 CT head/brain wo con CLINICAL HISTORY: 82 years-old Female with fall. Acute head trauma status post fall TECHNIQUE: Multiple axial CT images of the head were obtained without contrast. A dose lowering technique was utilized adhering to the principles of ALARA. CT DOSE: 547.75 mGy.cm COMPARISON: Brain MRI 06/14/2016 FINDINGS: No acute intracranial hemorrhage, midline shift, intracranial mass, hydrocephalus, territorial ischemia or abnormal extra-axial collection. Involutional changes with chronic microvascular ischemic disease. Cerebrovascular calcifications. The calvarium is intact. Mild mucosal thickening of the ethmoid air cells. Mastoid air cells are clear. Prior bilateral lens repair. IMPRESSION: No acute intracranial abnormality or calvarial fracture. ACT 112: Negative or not required by law. The above report was generated using voice recognition software. It may contain grammatical, syntax or spelling errors. Electronically signed by: Jeffrey Gagnon M.D. 11/10/2022 1:13 PM Hip/Pelvis X-Ray 11/10/22 18:20 XR hip 1V LT w pelvis HISTORY: 82 years-old Female IN PACU - Post Surgical [arthroplasty COMPARISON: Radiograph of same day at 4:23 PM TECHNIQUE: AP view the pelvis with cross table lateral view of the left hip FINDINGS: Satisfactory alignment of the left hip total arthroplasty. Expected postoperative soft tissue swelling with deep tissue air. Moderate osteoarthritis of the right hip. IMPRESSION: Left hip arthroplasty with expected postoperative changes. ACT 112: Negative or not required by law. The above report was generated using voice recognition software. It may contain grammatical, syntax or spelling errors. Electronically signed by: Jeffrey Gagnon M.D. 11/10/2022 6:49 PM (1) Closed left hip fracture Encounter type: initial encounter Qualified Code(s): S72.002A - Fracture of unspecified part of neck of left femur, initial encounter for closed fracture
[2022-11-11] MEDS: amLODIPine BESYLATE 5 MG TAB PO SCH (11:07)
[2022-11-11 13:34] LABS: Appearance Urine Clear (Clear); Bacteria Urine Automated Negative (Negative); Bilirubin Urine Negative (Negative); Blood Urine Negative (Negative); Color Urine Dark Yellow; Epithelial Cell Urine Auto 20-30 /lpf (0-5); Glucose Urine UA Negative (Negative); Ketones Urine Trace (Negative); Leukocyte Esterase Urine Trace (Negative); Nitrite Urine Negative (Negative); Protein Urine 1+ (Negative); Specific Gravity Urine 1.024 (1.000-1.030); Urobilinogen Urine Negative (Negative)
--- NOTE | 2022-11-11 15:04 | Hospitalist Progress Note ---
Date of Service November 11, 2022 Assessment & Plan (1) Closed left hip fracture: Plan: Postoperative day #1 after left hip hemiarthroplasty. Orthopedic consultation and recommendations appreciated. Supportive care. (2) Hypertension: Plan: Amlodipine and benazepril will be restarted at discharge. (3) Dyslipidemia: Plan: Stable. Continue statin therapy Plan Hopeful discharge to rehab tomorrow, November 12 Admission and Anticipated Discharge Date Admission Date: November 10, 2022 Subjective Alert and oriented. No complaints. Orthopedic entry noted. Overall, she is medically stable. She can be discharged to rehab tomorrow if arrangements are finalized Review of Systems Review of Systems: Constitutional-no fever or chills ENT-no blurred vision, no double vision, no epistaxis, no sore throat Respiratory-no cough, no wheezing, no shortness of breath Cardiac-no palpitations, no chest pain, no syncope GI-no nausea, vomiting, diarrhea, melena, hematochezia -no urinary retention, no urinary incontinence, no dysuria, no hematuria Musculoskeletal-mild left hip postoperative discomfort as expected Skin-no bruising, no rashes, no pruritus Neuro-no isolated weakness, no paresthesia, no weakness Psych-no depression, no anxiety Physical Exam Physical Exam: General-alert and oriented x3, no fevers, no chills HEENT-head atraumatic and normocephalic, pupils equal and reactive to light, extraocular muscles intact Neck-no lymphadenopathy or thyromegaly, trachea midline Chest-clear to auscultation percussion. No rales wheezing or rhonchi Cardiac-regular rate and rhythm, normal S1 and S2 Abdomen-normal bowel sounds, nontender, no hepatosplenomegaly Extremities-left hip surgical site clean and dry Neuro-cranial nerves II through XII intact, motor and sensory function within normal limits, strength symmetrical , no focal deficits Psych-normal affect, normal mood Results & Data Results & Data Vital Signs (Past 12 Hours) Vital Signs Temp Pulse Resp BP Pulse Ox O2 Del Method O2 Flow Rate 11/11/22 07:37 37.0 C 77 16 128/57 L 95 Room Air 11/11/22 06:00 36.8 C 80 18 122/66 93 Nasal Cannula 2 Laboratory Results 11/11/22 07:12 11/11/22 07:12 PG Care Time/CCT Total # of Minutes Spent Total Time Spent with Patient: Total time spent is greater than 50% in coordination of care (as documented) at patient's floor/unit and/or counseling patient: Coding Level of Care Code 18614 SUB INP/OBS CARE 350MIN Diagnoses Closed left hip fracture S72.002A Encounter type: initial encounter Hypertension I10 Dyslipidemia E78.5 (1) Closed left hip fracture Encounter type: initial encounter Qualified Code(s): S72.002A - Fracture of unspecified part of neck of left femur, initial encounter for closed fracture
--- NOTE | 2022-11-11 18:14 | Electrocardiogram Report ---
Test Reason : Blood Pressure : / mmHG Vent. Rate : 083 BPM Atrial Rate : 083 BPM P-R Int : 144 ms QRS Dur : 076 ms QT Int : 386 ms P-R-T Axes : 065 001 070 degrees QTc Int : 453 ms Sinus rhythm with Premature supraventricular complexes Otherwise normal ECG When compared with ECG of 11-OCT-2016 15:09, Premature supraventricular complexes are now Present Confirmed by Jerome Geiger ([id number]) on 11/11/2022 6:13:41 PM Referred By: REFERRED SELF Confirmed By:Ethan Geiger
[2022-11-11] MEDS: SENNA 8.6 MG TAB PO SCH (20:48)
[2022-11-11] MEDS: oxyCODONE HCL IR 5 MG TAB (IMMEDIATE RELEASE) PO PRN (23:58)
[2022-11-12 07:06] LABS: Basophils # (auto) 0.02 K/uL (0-0.2); Basophils % (auto) 0.2 %; Eosinophils # (auto) 0.03 K/uL (0-0.50); Eosinophils % (auto) 0.3 %; Hematocrit (blood only) 32.2 % (37.0-47.0); Hemoglobin 10.7 g/dl (12.0-16.0); Immature Granulocytes # (auto) 0.03 K/uL (0.01-0.20); Immature Granulocytes % (auto) 0.3 %; Lymphocytes # (auto) 0.88 K/uL (1.2-3.4); Lymphocytes % (auto) 9.1 %; Mean Corpuscular Hemoglobin 29.9 pg (25.0-34.0); Mean Corpuscular Hgb Conc 33.2 g/dL (32.0-36.0); Mean Corpuscular Volume 89.9 fL (80.0-100.0); Mean Platelet Volume 10.4 fL (9.4-12.4); Monocytes # (auto) 0.99 K/uL (0.11-0.59); Monocytes % (auto) 10.2 %; Neutrophils # (auto) 7.73 K/uL (1.40-6.50); Neutrophils % (auto) 79.9 %; Platelet Count 148 K/uL (130-400); RDW Coefficient of Variation 14.8 % (11.5-14.5); RDW Standard Deviation 48.9 fL (36.4-46.3); Red Blood Count 3.58 M/uL (4.20-5.40); White Blood Count 9.68 K/ul (4.8-10.8)
[2022-11-12 07:28] LABS: BUN Creatinine Ratio 47.3 (10-20); Calcium 8.5 mg/dl (8.6-10.3); Creatinine Clr Calc Pharmacy 47.7 ml/min; Est GFR (African American) 67.6 ml/min; Est GFR (Non-African American) 58.3 ml/min; Potassium 3.5 mmol/L (3.5-5.1)
--- NOTE | 2022-11-12 07:40 | Orthopedic Progress Note ---
Date of Service November 12, 2022 Assessment & Plan (1) Closed left hip fracture: Plan: POD #2 s/p Left hip hemiarthroplasty, doing as well as expected. Resume diet. WBAT with walker. OOB to chair. Total hip precautions. Continue pain control. Dressing changed to Silverlon today. DVT prophylaxis: TEDs 3 weeks, foot pumps while in hospital, ASA 325 mg BID for 6 weeks. PT/OT. D/C planning. Continue care per primary service Admission and Anticipated Discharge Date Admission Date: November 10, 2022 Supervising Physician Co-Signing Physician Notes I, Dr. Damico, saw and examined the patient and discussed the management with my PA. I reviewed my PAs note and agree with the documented findings and the plan of care I developed. Subjective Resting in bed. Doing well. No complaints of severe pain in left hip. States that it hurts to sit. She did take some steps with PT. Feels that she's doing well. Physical Exam Musculoskeletal: Left hip incision clean, dry and intact. Zip line in place. Minimal dried bloody drainage on dressings. No active drainage. No surrounding erythema, underlying hematoma or seroma, nontender around incision today. No distal edema, normal strength 5/5 bilateral lower extremities. Distal pulses 1+ Results & Data Vital Signs (Past 12 Hours) Vital Signs Temp Pulse Resp BP BP Pulse Ox O2 Del Method 11/12/22 07:31 36.7 C 80 17 125/68 93 Room Air 11/11/22 20:50 Room Air 11/11/22 21:00 36.8 C 86 16 149/77 H 93 Room Air Laboratory Results 11/12/22 11/12/22 11/11/22 Range/Units 06:43 06:43 13:10 WBC 9.68 (4.8-10.8) K/ul RBC 3.58 L (4.20-5.40) M/uL Hgb 10.7 L (12.0-16.0) g/dl Hct 32.2 L (37.0-47.0) % MCV 89.9 (80.0-100.0) fL MCH 29.9 (25.0-34.0) pg MCHC 33.2 (32.0-36.0) g/dL RDW Std Deviation 48.9 H (36.4-46.3) fL RDW Coeff of Reny 14.8 H (11.5-14.5) % Plt Count 148 (130-400) K/uL MPV 10.4 (9.4-12.4) fL Immature Gran % (Auto) 0.3 % Neut % (Auto) 79.9 % Lymph % (Auto) 9.1 % [place] % (Auto) 10.2 % Eos % (Auto) 0.3 % Baso % (Auto) 0.2 % Neut # (Auto) 7.73 H (1.40-6.50) K/uL Lymph # (Auto) 0.88 L (1.2-3.4) K/uL [place] # (Auto) 0.99 H (0.11-0.59) K/uL Eos # (Auto) 0.03 (0-0.50) K/uL Baso # (Auto) 0.02 (0-0.2) K/uL Immature Gran # (Auto) 0.03 (0.01-0.20) K/uL Sodium 139 (136-145) mmol/L Potassium 3.5 (3.5-5.1) mmol/L Chloride 107 (98-107) mmol/L Carbon Dioxide 25 (21-32) mmol/L Anion Gap 7 (3-11) BUN 43 H (6-23) mg/dl Creatinine 0.91 (0.6-1.2) mg/dl Est Cr Clr Drug Dosing 47.7 ml/min Est GFR ( Amer) 67.6 ml/min Est GFR (Non-Af Amer) 58.3 ml/min BUN/Creatinine Ratio 47.3 H (10-20) Glucose 132 H (70-99(Fasting)) mg/dl Calcium 8.5 L (8.6-10.3) mg/dl Urine Color Dark Yellow Urine Appearance Clear (Clear) Urine pH 5.0 (4.5-7.5) Ur Specific [place] 1.024 (1.000-1.030) Urine Protein 1+ H (Negative) Urine Glucose (UA) Negative (Negative) Urine Ketones Trace H (Negative) Urine Blood Negative (Negative) Urine Nitrite Negative (Negative) Urine Bilirubin Negative (Negative) Urine Urobilinogen Negative (Negative) Ur Leukocyte Esterase Trace H (Negative) Urine WBC (Auto) 5-10 H (0-5) /hpf Urine RBC (Auto) 5-10 H (0-4) /hpf U Hyaline Cast (Auto) 5-10 H (0-5) /lpf U Epithel Cells (Auto) 20-30 H (0-5) /lpf Urine Bacteria (Auto) Negative (Negative) 11/11/22 11/11/22 Range/Units 07:12 07:12 WBC 11.98 H (4.8-10.8) K/ul RBC 4.03 L (4.20-5.40) M/uL Hgb 12.1 D (12.0-16.0) g/dl Hct 36.7 L (37.0-47.0) % MCV 91.1 (80.0-100.0) fL MCH 30.0 (25.0-34.0) pg MCHC 33.0 (32.0-36.0) g/dL RDW Std Deviation 48.6 H (36.4-46.3) fL RDW Coeff of Reny 14.6 H (11.5-14.5) % Plt Count 177 (130-400) K/uL MPV 9.9 (9.4-12.4) fL Immature Gran % (Auto) 0.3 % Neut % (Auto) 81.3 % Lymph % (Auto) 7.7 % [place] % (Auto) 10.2 % Eos % (Auto) 0.2 % Baso % (Auto) 0.3 % Neut # (Auto) 9.75 H (1.40-6.50) K/uL Lymph # (Auto) 0.92 L (1.2-3.4) K/uL [place] # (Auto) 1.22 H (0.11-0.59) K/uL Eos # (Auto) 0.02 (0-0.50) K/uL Baso # (Auto) 0.03 (0-0.2) K/uL Immature Gran # (Auto) 0.04 (0.01-0.20) K/uL Sodium 143 (136-145) mmol/L Potassium 4.0 (3.5-5.1) mmol/L Chloride 108 H (98-107) mmol/L Carbon Dioxide 27 (21-32) mmol/L Anion Gap 8 (3-11) BUN 34 H (6-23) mg/dl Creatinine 1.07 D (0.6-1.2) mg/dl Est Cr Clr Drug Dosing 40.6 ml/min Est GFR ( Amer) 55.6 ml/min Est GFR (Non-Af Amer) 48.0 ml/min BUN/Creatinine Ratio 31.8 H (10-20) Glucose 123 H (70-99(Fasting)) mg/dl Calcium 8.5 L (8.6-10.3) mg/dl Urine Color Urine Appearance (Clear) Urine pH (4.5-7.5) Ur Specific [place] (1.000-1.030) Urine Protein (Negative) Urine Glucose (UA) (Negative) Urine Ketones (Negative) Urine Blood (Negative) Urine Nitrite (Negative) Urine Bilirubin (Negative) Urine Urobilinogen (Negative) Ur Leukocyte Esterase (Negative) Urine WBC (Auto) (0-5) /hpf Urine RBC (Auto) (0-4) /hpf U Hyaline Cast (Auto) (0-5) /lpf U Epithel Cells (Auto) (0-5) /lpf Urine Bacteria (Auto) (Negative) (1) Closed left hip fracture Encounter type: initial encounter Qualified Code(s): S72.002A - Fracture of unspecified part of neck of left femur, initial encounter for closed fracture
[2022-11-12] MEDS: ASCORBIC ACID 500 MG TAB PO SCH (09:16)
[2022-11-12] MEDS: amLODIPine BESYLATE 5 MG TAB PO SCH (09:17)
[2022-11-12] MEDS: FERROUS GLUCONATE 324 MG TAB PO SCH (09:17)
[2022-11-12] MEDS: MULTIVITAMIN TAB PO SCH (09:18)
[2022-11-12] MEDS: ASPIRIN 325 MG ECTAB PO SCH (09:18)
--- NOTE | 2022-11-12 12:36 | Discharge Summary ---
Date of Service November 12, 2022 Admission HPI Per Admitting Provider Mikala is an 82-year-old with a past medical history of hypertension, hyperlipidemia, and daily aspirin use on amlodipine/BenzePril who presented to the ER after a fall with left hip pain. She is admitted for an acute hip fracture. Seen with daughter in law Ferris, Last ate 8am, no blood thinners Mikala reports she has wood floors andf was wearing sandles and went to reach above her refridgerator to get some cough drops and she lost her balance and fell. Doesn't remember any lightheadednezz, dizziness, syncope, pre-sycnope. Does have a hx of postural/orthostatic dizziness but no syncope. Immediately well oriented after No chest pain or chest pressure. None recently Uses cough drops to keep her mouth moist, denies recent fevers, chills, cough, diarrhea. Has not had PFTs in many years, no history of COPD/[place] but concern for DLCO and ?eventual oxygen requirement. Had PFTs many years ago, not sure why thinks it may have been for secondary smoke exposure or shortness of breath at the time. Pt denies any wheezing, does endorse intermittent hoarse voice. Has not taken atorvastatin in several years. Takes full dose aspirin, takes after dinner- last took 11/09. Small cereal and milk at 8am No hx insulin use No history of heart failure Medical History: Reviewed Medications: Reviewed. Amlodipine-benzapril. Surgical History: Reviewed Family history: Reviewed Allergies: Reviewed Social History: No history of tobacco use. Did have secondary smoke exposure. Code Status: DNR/DNI Principal Diagnosis Left hip fracture due to mechanical fall, status post left hip hemiarthroplasty, acute blood loss anemia Discharge Exam General-alert and oriented x3, no fevers, no chills HEENT-head atraumatic and normocephalic, pupils equal and reactive to light, extraocular muscles intact Neck-no lymphadenopathy or thyromegaly, trachea midline Chest-clear to auscultation percussion. No rales wheezing or rhonchi Cardiac-regular rate and rhythm, normal S1 and S2 Abdomen-normal bowel sounds, nontender, no hepatosplenomegaly Extremities-left hip surgical site clean and dry Neuro-cranial nerves II through XII intact, motor and sensory function within normal limits, strength symmetrical , no focal deficits Psych-normal affect, normal mood Discharge Data Allergies Allergy/AdvReac Type Severity Reaction Status Date / Time No Known Allergies Allergy Unverified 09/05/20 13:02 Consultations 11/10/22 11:33 Consult Orthopedic Surgery Stat 11/10/22 13:32 ED Decision to Admit Stat Procedures Performed Operation Date: 11/10/22 15:00 Actual Procedures p Left hip hemiarthroplasty.(Left) - Srinivas Damico MD Ordered Studies 11/10/22 11:32 CT head/brain wo con Stat Hospital Course (1) Closed left hip fracture: Postoperative day #2 after left hip hemiarthroplasty. Orthopedic consultation and recommendations appreciated. Supportive care. Aspirin therapy for 6 weeks, OPAL hose for 3 weeks (2) Hypertension: Amlodipine and benazepril therapy. Stable (3) Dyslipidemia: Stable. Continue statin therapy Plan Plan discharge to [facility], November 12 Total Time Total Time Spent Total Time Spent (In Minutes): 40 Discharge Plan Discharge Items Patient Disposition: Transfer Inpatient Rehab Fac Reason For Visit: L HIP FRACTURE Discharge Diagnosis: Mechanical fall with left hip fracture, status post left hip hemiarthroplasty, acute blood loss anemia not requiring transfusion Activity: As commented below Weightbearing: Left weightbearing Weightbearing Comment: with walker Non-emergency contact: Surgeon Call non-emergency contact if: you have any medication questions, your symptoms worsen, your pain is not controlled, your temperature is above 101, your wound has increased redness and your wound has increased drainage Follow-up/Referrals: Reed Serrano PA-C [Physician Database Operator] - 11/26/22 10:00 am Tessie Dominique MD [Primary Care Provider] - Diet: Regular and Heart Healthy Add Attending Provider Instructions: Bilateral OPAL hose for 3 weeks. Aspirin 325 mg twice a day for 30 days after surgery Addtl Seismic Observer Provider Instructions: Orthopedic instructions: -Ice to left hip as needed for pain and swelling. -Weight-bear as tolerated on your left lower extremity with the assistance of a walker at all times. -Abduction pillow between knees when in bed. May switch to a standard pillow when in bed and sitting in chair for comfort. -Posterior hip precautions at all times as instructed by physical therapy. -Physical therapy and Occupational Therapy daily. -Aspirin 325 mg twice daily for 30 days after surgery. -Iron and vitamin C twice daily x2 weeks after surgery. -OPAL stockings, knee-high; on during the day and off at night. -Keep Silverlon in place. May shower with Silverlon in place. May reinforce dressing as needed to left hip. -Call [phone] with any increased pain, swelling, drainage, fevers, chills, questions or concerns. -Follow-up as scheduled and Dr. Damico's office. Call [phone] with any needs to reschedule appointment. Pending Studies at Discharge: No Stand-Alone Forms: My [facility] Skilled Items Patient informed of condition?: Yes DNR: Yes Discharge Level of Care: Acute rehab Communicable Disease: No Discharge Prognosis: Stable Lines: None Urinary Catheter: No Medications and DC Order Prescriptions: New ascorbic acid (vitamin C) [Vitamin C] 500 mg Tablet 500 mg PO BIDM Qty: 0 0RF aspirin [Ecotrin] 325 mg Tablet,Delayed Release (Dr/Ec) 325 mg PO BID Qty: 0 0RF ferrous gluconate 324 mg (38 mg iron) Tablet 324 mg PO BIDM Qty: 0 0RF multivitamin with folic acid [Daily-Linda (with folic acid)] 400 mcg Tablet 1 tab PO QAM Qty: 0 0RF sennosides [Senokot] 8.6 mg Tablet 17.2 mg PO HS Qty: 0 0RF Continued aspirin 325 mg tablet 325 mg PO DAILY Qty: 90 3RF multivitamin [Multiple Vitamins] tablet 1 tab PO QAM Qty: 30 0RF amlodipine-benazepril 5-20 mg capsule 1 cap PO DAILY Qty: 90 3RF cyanocobalamin (vitamin B-12) 500 mcg tablet 500 mcg PO DAILY potassium 99 mg Tablet 99 mg PO DAILY [id number] Tablet 1 tab PO DAILY Rx Instructions: Unsure of strength Discharge Orders: Discharge Order (Routine); Ordered 11/12/22 Ordered By: Jerry Hightower Admission Data Admit Date/Time: 11/10/22 14:31 Attending Provider: Jerry Hightower Admit Provider: Emerson Betancourt Primary Care Provider: Tessie Dominique Other Providers: Srinivas Damico ; Emerson Betancourt ; [facility],Health ; [place],Care Coding Level of Care Code 91610 INP/OBS DISCH >30 MIN Diagnoses Closed left hip fracture S72.002A Encounter type: initial encounter Hypertension I10 Dyslipidemia E78.5
[2022-11-12] MEDS: oxyCODONE HCL IR 5 MG TAB (IMMEDIATE RELEASE) PO PRN (13:09)
== END 2022-11-12 16:17 | DRG 522 ==
LOC: ED 10:42 → OR 14:30 → SUATTDRO 14:31 → 3N 14:31